=== PATIENT | female | born 1975 | race Caucasian/White ===

== ENCOUNTER 2023-09-20 12:20 | Outpatient (CLI) | payer BC, SELFPAY ==
--- NOTE | 2023-09-20 12:28 | ECHO_ITS ---
Patient Info Name: Lindsay Link Age: 48 years : 1975 Gender: Female Ht: 65 in Wt: 173 lbs BSA: 1.92 m2 HR: 78 bpm BP: 117 / 86 mmHg Heart Rhythm: Sinus Rhythm Technical Quality: Good Exam Date: 09/20/2023 12:35 PM Exam Location: Echo Lab Patient Status: Outpatient Admit Date: 09/20/2023 Staff Ordering Physician: Magaly Chapman Dining Room Tables Set Up Attendant: Adelina Chang RDCS Attending Provider: Magaly Chapman Referring Physician: Adela CRANE; Exam Type: CA echo doppler color flow Study Info Indications - Cher-Danlos syndrome Complete two-dimensional, color flow and Doppler transthoracic echocardiogram is performed. Summary 1. Complete two-dimensional, color flow and Doppler transthoracic echocardiogram is performed. 2. Left ventricular chamber dimension is normal. 3. Left ventricular systolic function is normal, estimated at 65-70%. 4. The left ventricular diastolic function is grade I diastolic dysfunction. 5. E/e' 5 is not elevated. 6. There is mild aortic valve sclerosis. 7. There is trace mitral valve regurgitation. 8. There is trace tricuspid valve regurgitation. 9. No pulmonary hypertension, estimated pulmonary arterial systolic pressure is 25 mmHg. Left Ventricle E/e' 5 is not elevated. Left ventricular chamber dimension is normal. Left ventricular systolic function is normal, estimated at 65-70%. The left ventricular diastolic function is grade I diastolic dysfunction. Right Ventricle Right ventricular systolic function is normal and with normal TAPSE 2.5 cm. Right ventricular chamber dimension is normal. Left Atria Left atrial chamber dimension is normal. Right Atria Right atrial chamber dimension is normal. Aortic Valve The aortic valve is trileaflet. There is mild aortic valve sclerosis. There is no aortic valve stenosis. There is no aortic valve regurgitation. Pulmonic Valve There is no pulmonic regurgitation. Mitral Valve There is no mitral valve stenosis. There is trace mitral valve regurgitation. Tricuspid Valve There is trace tricuspid valve regurgitation. No pulmonary hypertension, estimated pulmonary arterial systolic pressure is 25 mmHg. Pericardium/Pleural There is no pericardial effusion. Inferior Vena Cava Normal inferior vena cava with >50% collapse upon inspiration consistent with normal right atrial pressure, 5 mmHg. Aorta The aortic root size at the sinus of Valsalva is normal. Left Ventricular Outflow Tract Name Value Normal LVOT 2D LVOT Diameter 2.0 cm LVOT Doppler LVOT Peak Gradient 5 mmHg LVOT Mean Gradient 2 mmHg LVOT VTI 24 cm LVOT VTI/AV VTI Ratio 0.7 LVOT Stroke Volume 72 ml LVOT CO 4.1 l/min LVOT CI 2.1 l/min/m2 Pulmonic Valve Name Value Normal RVOT Doppler
== END 2023-09-20 12:21 | disposition home or self-care (01) ==
LOC: ANHCARD 12:22
PROVIDERS: PCP Internal Medicine; Visit Provider Clinical Nurse Specialist
DX: Q79.60 Ehlers-Danlos syndrome, unspecified (principal); I07.1 Rheumatic tricuspid insufficiency
CPT/HCPCS: 93306

== ENCOUNTER 2023-10-12 10:17 | Outpatient (CLI) | payer BC, SELFPAY ==
--- NOTE | ~2023-10-12 | XR_ITS ---
Left Hand Technique: PA and lateral views were obtained. Clinical History: Pain Findings: No acute fracture or dislocation is seen. Osseous alignment is anatomic. Joint spaces are p reserved. Soft tissues are unremarkable. Impression: Unremarkable left hand. Reviewed, dictated and finalized at location M. Impression: Unremarkable left hand.
== END 2023-10-12 10:18 ==
PROVIDERS: PCP Internal Medicine; Visit Provider Clinical Nurse Specialist
DX: M79.645 Pain in left finger(s) (principal)
CPT/HCPCS: 73120

== ENCOUNTER 2023-10-21 17:06 | Emergency (ER) | payer BC, SELFPAY ==
--- NOTE | ~2023-10-21 | XR_ITS ---
EXAMINATION: XR finger 3rd LT min 2V DATE: 10/21/2023 17:20 INDICATION: Persistent left third digit pain post reduction of a dislocation TECHNIQUE: Dorsal palmar, lateral and 2 oblique views of the left third digit were obtained COMPARISON: Left hand radiographs dated 10/12/2023 FINDINGS: Alignment is normal. No fracture. Joint spaces are normal. Periarticular soft soft tissue swelling ab out the third proximal interphalangeal joint. IMPRESSION: 1. No osseous abnormality. Reviewed, dictated and finalized at location A. IMPRESSION: 1. No osseous abnormality.
[2023-10-21 17:10] VITALS: BP 141/94; PULSE 74; RESP 16; TEMP 36.4; O2SAT 100
--- NOTE | 2023-10-21 17:22 | ED.GENADULT ---
HPI - General Adult General Chief complaint: Extremity Injury, Upper Stated complaint: finger injury Time Seen by Provider: 10/21/23 17:08 History of Present Illness HPI narrative: 48-year-old female history of her LEs down less presented to the emergency department for evaluation of an injury to her left middle finger. Patient states that she was running her fingers through her hair when she had a dislocation at the DIP of her left middle finger. Patient states she tried to reduce the dislocation and felt a pop and the tendon that finger and patient is unable to flex the distal phalanx the left middle finger. Related Data Home Medications Medication Instructions Recorded Confirmed omeprazole 40 mg capsule,delayed 40 mg PO DAILY 08/24/23 08/24/23 release Allergies Allergy/AdvReac Type Severity Reaction Status Date / Time Cephalosporins Allergy Severe Hives Verified 10/21/23 17:07 Penicillins Allergy Severe Anaphylactic Verified 10/21/23 17:07 Shock tetanus and diphtheria Allergy Severe Hives Verified 10/21/23 17:07 toxoids sulfite Allergy Anaphylactic Verified 10/21/23 17:07 Shock Review of Systems Review of Systems: All systems reviewed & are unremarkable except as noted in HPI and below [facility] Past Medical History Medical History (Updated 10/22/23 @ 00:00 by Mirna Padilla) Allergies Arthritis Cher-Danlos syndrome Mast cell activation syndrome POTS (postural orthostatic tachycardia syndrome) Raynauds syndrome Surgical History Surgical History (Updated 08/24/23 @ 08:59 by Ella Ace MA) History of orthopedic surgery Family History Family History (Updated 08/24/23 @ 08:35 by Ella Ace MA) Father Brain cancer Alcoholism in family member Hypertension Cerebrovascular accident Mother Asthma Hypertension Depression Anxiety Heart problem Sibling Diabetes mellitus Grandparent Diabetes mellitus Grandparent Alcoholism in family member Social History Social History (Updated 08/24/23 @ 08:32 by Ella Ace MA) Social History: Caffeine 4 shots of expresso Smoking status: Never smoker Second hand tobacco smoke exposure: No Alcohol intake: current Alcohol use details: Social drinker Substance use: never Substance use type: does not use Do You Feel Safe in your Home?: Yes Lack of Transportation: No Lack of Food: Never True Current Housing: I Have Housing Concerned About Future Housing: No Difficulty Paying Gas/Electric Bills: No Difficulty Paying for Meds: No Currently Unemployed: No Education: Master's Degree or Higher Difficulty w/ Childcare or Family Care: No Living arrangements: with family Occupation/Education: occupation Additional occupation/education comments: [employer] Gender identity (if verbalized by the patient): Female Sexual Orientation (if Verbalized by the Patient): Straight or Heterosexual Agree to blood products: Yes Exam Narrative: APPEARANCE: Well appearing, no pain, no distress, well-nourished. HEAD: normocephalic, atraumatic. EYES: PERRLA/EOMI, conjunctivae clear. NOSE: Normal no drainage NECK: Supple. No adenopathy, no masses. RESPIRATORY: Airway patent, respirations nonlabored. Clear to auscultation bilaterally, no rales, rhonchi, wheezing. CARDIOVASCULAR: Regular rate and rhythm without murmurs rubs or gallops. ABDOMINAL: Soft, nontender, nondistended, normal bowel sounds MUSCULOSKELETAL: Decreased range of motion and pain at the left middle finger NEURO: Alert. Cranial nerves II through XII intact. SKIN: Warm, dry. Normal Color Course Vital Signs Vital signs: Vital Signs Temperature 97.5 F L 10/21/23 17:10 Pulse Rate 74 10/21/23 17:10 Respiratory Rate 16 10/21/23 17:10 Blood Pressure 141/94 H 10/21/23 17:10 Pulse Oximetry 100 10/21/23 17:10 Temperature 97.5 F L 10/21/23 17:10 Pulse Rate 72 05/0
[2023-10-21 18:20] VITALS: BP 138/62; PULSE 72; RESP 18; O2SAT 99
== END 2023-10-21 18:21 | disposition home or self-care (01) ==
PROVIDERS: Emergency Provider Emergency Medicine
DX: S69.92XA Unspecified injury of left wrist, hand and finger(s), initial encounter (principal); M19.90 Unspecified osteoarthritis, unspecified site; Q79.60 Ehlers-Danlos syndrome, unspecified; G90.A Postural orthostatic tachycardia syndrome [POTS]; I73.00 Raynaud's syndrome without gangrene; D89.40 Mast cell activation, unspecified; X58.XXXA Exposure to other specified factors, initial encounter
CPT/HCPCS: 29130; 73140; 99283

== ENCOUNTER 2023-10-23 10:21 | Outpatient (CLI) | payer BC, SELFPAY ==
--- NOTE | ~2023-10-23 | MR_ITS ---
EXAMINATION: MR hand LT wo con DATE: 10/23/2023 11:00 INDICATION: Injury to the left middle finger TECHNIQUE: Magnetic resonance imaging (MRI) of the left hand was performed without intravenous contra st to include the metacarpals and digits and which excludes the proximal carpal row. Sequences includ ed sagittal, coronal, and axial T1-weighted FSE and T2-weighted FS FSE. COMPARISON: Radiographs dated 10/21/2023 FINDINGS: Bone alignment is normal. Normal marrow signal throughout with no fracture or pathologic marrow repla cing process. Joint spaces are normal. Visualized portions of the flexor and extensor tendons are nor mal. The collateral ligament complex at the metacarpophalangeal and interphalangeal joints are normal . The intrinsic musculature of the hand is normal. No joint effusions, tenosynovitis or other abnorma l fluid collections. IMPRESSION: 1. Normal left hand MRI. Reviewed, dictated and finalized at location A. IMPRESSION: 1. Normal left hand MRI.
== END 2023-10-23 10:22 ==
LOC: GOSHIMG 10:22
PROVIDERS: Visit Provider Plastic Surgery
DX: S60.943A Unspecified superficial injury of left middle finger, initial encounter (principal); X58.XXXA Exposure to other specified factors, initial encounter
CPT/HCPCS: 73218

== ENCOUNTER 2024-03-29 13:01 | Emergency (ER) | payer BC, SELFPAY ==
--- NOTE | ~2024-03-29 | US_ITS ---
EXAMINATION: US venous doppler LE RT DATE: 03/29/2024 13:40 INDICATION: Right calf pain. TECHNIQUE: Grayscale ultrasound images without and with compression and Doppler ultrasound images of the right lower extremity veins were obtained. COMPARISON: None. FINDINGS: The visualized portions of right common femoral vein, profunda (deep) femoral vein, femoral vein, pop liteal vein, peroneal veins, posterior tibial veins, and greater saphenous vein outflow are patent. IMPRESSION: 1. No deep venous thrombosis. Reviewed, dictated and finalized at location A.
[2024-03-29 13:10] VITALS: BP 111/79; PULSE 93; RESP 20; TEMP 36.5; O2SAT 100
--- NOTE | 2024-03-29 14:22 | ED.EXTPRO ---
HPI - Extremity Problem General Chief complaint: Extremity Problem,Nontraumatic Stated complaint: Right Calf Pain Time Seen by Provider: 03/29/24 14:04 History of Present Illness HPI Narrative: Patient has history of Cher Danlos, woke up today with the bad muscle ache to her right lower leg, worse with movement of her foot. Denies any recent trauma. Worried about blood clot Related Data Allergies Allergy/AdvReac Type Severity Reaction Status Date / Time Cephalosporins Allergy Severe Hives Verified 03/21/24 08:18 Penicillins Allergy Severe Anaphylactic Verified 03/21/24 08:18 Shock tetanus and diphtheria Allergy Severe Hives Verified 03/21/24 08:18 toxoids sulfite Allergy Anaphylactic Verified 03/21/24 08:18 Shock Review of Systems Review of Systems: All systems reviewed & are unremarkable except as noted in HPI and below [facility] Past Medical History Medical History (Updated 03/29/24 @ 14:08 by Gisele Dugan MD) Allergies Arthritis Cher-Danlos syndrome Mast cell activation syndrome Overweight with body mass index (BMI) of 29 to 29.9 in adult POTS (postural orthostatic tachycardia syndrome) Raynauds syndrome Surgical History Surgical History History of orthopedic surgery Family History Family History Father Brain cancer Alcoholism in family member Hypertension Cerebrovascular accident Mother Asthma Hypertension Depression Anxiety Heart problem Sibling Diabetes mellitus Grandparent Diabetes mellitus Grandparent Alcoholism in family member Social History Social History Social History: Caffeine 4 shots of expresso Smoking status: Never smoker Second hand tobacco smoke exposure: No Alcohol intake: current Alcohol use details: Social drinker Substance use: never Substance use type: does not use Do You Feel Safe in your Home?: Yes Lack of Transportation: No Lack of Food: Never True Current Housing: I Have Housing Concerned About Future Housing: No Difficulty Paying Gas/Electric Bills: No Difficulty Paying for Meds: No Currently Unemployed: No Education: Master's Degree or Higher Difficulty w/ Childcare or Family Care: No Living arrangements: with family Occupation/Education: occupation Additional occupation/education comments: [employer] Gender identity (if verbalized by the patient): Female Sexual Orientation (if Verbalized by the Patient): Straight or Heterosexual Agree to blood products: Yes Exam Narrative: EXAMINATION OF ORGAN SYSTEMS/BODY AREAS: Constitutional: Vital signs per nursing GENERAL:[No acute distress, non-toxic appearing.] HEAD: Normal with no signs of head trauma. EYES: EOMI, conjunctiva normal ENT: Hearing grossly intact LUNGS: Nonlabored breathing. HEART: [Regular rate and rhythm], right leg well perfused, normal DP pulse ABD: [Soft], [nontender to palpation] EXT: Normal range of motion, some tenderness to palpation to the posterior right lower leg without obvious swelling SKIN: [No rashes or lesions.] NEURO: [Alert and oriented x 3. No gross focal sensory or strength deficits.] ambulating with antalgic gait PSYCH: Normal affect Course Vital Signs Vital signs: Vital Signs Temperature 97.7 F 03/29/24 13:10 Pulse Rate 93 03/29/24 13:10 Respiratory Rate 20 03/29/24 13:10 Blood Pressure 111/79 03/29/24 13:10 Pulse Oximetry 100 03/29/24 13:10 Oxygen Delivery Room Air 03/29/24 13:10 Temperature 97.7 F 03/29/24 13:10 Pulse Rate 93 03/29/24 13:10 Respiratory Rate 20 03/29/24 13:10 Blood Pressure 111/79 03/29/24 13:10 Pulse Oximetry 100 03/29/24 13:10 Oxygen Delivery Room Air 03/29/24 13:10 MDM - Extremity (Nontraumatic) MDM Narrative Medical decision making narrative: patient presents with atraumatic right lower leg pain, concerned about DVT, scan obtained thankfully negative for blood Clot. Patient reassured, I will trial course of muscle relaxants, recommended follow-up with PCP with return precautions, Discharge Plan Discharge Clinical Impression: Muscle spasm Patient Disposition: Home, Self-Care Condition: Stable Instructions: Antibiotic Form, Leg Pain (ED) Additional Instructions: Please follow up with your doctor; you can always return for any further issues. Prescriptions: New methocarbamol 750 mg tablet 750 mg PO TID PRN (Reason: muscle spasm) Qty: 30 0RF No Action rosuvastatin 10 mg tablet 10 mg PO DAILY Qty: 90 0RF epinephrine 0.3 mg/0.3 mL auto-injector 0.3 ml IM ONCE Qty: 2 2RF Rx Instructions: as a single dose ondansetron HCl 4 mg tablet 4 mg PO DAILY PRN (Reason: nausea and vomiting) Qty: 20 2RF omeprazole 40 mg capsule,delayed release(DR/EC) 40 mg PO DAILY Qty: 90 1RF Wegovy 1.7 mg/0.75 mL pen injector 1.7 mg subcut WEEKLY Qty: 3 0RF Rx Instructions: administer weeks 13 through 16 of therapy trazodone 150 mg tablet 150 mg PO QHS PRN (Reason: insomnia) Qty: 90 3RF Follow-up/Referrals: PHYSICIAN,GROUT MACHINE TENDER [Non-Staff] -
== END 2024-03-29 14:14 | disposition home or self-care (01) ==
LOC: ANHED 14:11
PROVIDERS: Emergency Provider Emergency Medicine; PCP Clinical Nurse Specialist
DX: M62.831 Muscle spasm of calf (principal); Q79.60 Ehlers-Danlos syndrome, unspecified; D89.40 Mast cell activation, unspecified; G90.A Postural orthostatic tachycardia syndrome [POTS]; I73.00 Raynaud's syndrome without gangrene; M19.90 Unspecified osteoarthritis, unspecified site
CPT/HCPCS: 93971; 99284

== ENCOUNTER 2024-05-31 06:45 | Emergency (ER) | payer BC, SELFPAY ==
[2024-05-31] VITALS (14 sets, daily range): BP systolic 102–118; BP diastolic 66–71; PULSE 74; RESP 18; O2SAT 100
--- NOTE | ~2024-05-31 | XR_ITS ---
EXAMINATION: XR chest 2V DATE: 05/31/2024 07:26 INDICATION: Shortness of breath, cough and difficulty catching breath. TECHNIQUE: PA and lateral views of the chest were obtained. COMPARISON: None FINDINGS: The lungs are clear with no focal airspace opacities, pulmonary edema, pleural effusion or pneumothor ax. The cardiomediastinal silhouette is normal. Moderate thoracic spondylosis. IMPRESSION: 1. No acute cardiopulmonary disease. Reviewed, dictated and finalized at location A. FACTURER REPRESENTATIVE
[2024-05-31 07:25] LABS: Basophils Absolute Auto 0.1 K/mm3 (0.0-0.1); Basophils Percent Auto 0.5 % (0.2-1.2); Eosinophils Absolute Auto 0.1 K/mm3 (0-0.3); Eosinophils Percent Auto 1.1 % (0-4.4); Hemoglobin 14.6 g/dL (12.0-15.0); Immature Granulocyte Absolute 0.05 K/mm3 (0.00-0.031); Immature Granulocyte Percent A 0.5 % (0-0.5); Lymphocytes Absolute Auto 2.27 K/mm3 (0.9-3.2); Lymphocytes Percent Auto 23.2 % (18.3-44.2); Mean Corpuscular HGB Conc 33.2 g/dl (32-36); Mean Corpuscular Hemoglobin 31.3 pg (26-34); Mean Corpuscular Volume 94.2 fl (80-100); Mean Platelet Volume 8.8 fl (7.4-10.4); Monocytes Absolute Auto 0.8 K/mm3 (0.1-0.6); Monocytes Percent Auto 8.6 % (2.6-8.5); Neutrophils Absolute Auto 6.5 K/mm3 (1.3-6.7); Neutrophils Percent Auto 66.1 % (45.5-73.1); Platelet Count Result 295 k/mm3 (150-375); Red Blood Count 4.67 M/mm3 (4.2-5.4); Red Cell Distribution Width 12.6 % (11.5-14.5); White Blood Count 9.8 K/mm3 (4.5-10.0)
[2024-05-31] MEDS: SODIUM CHLORIDE 0.9% IV 1,000 ML 999 ML IV CONT (07:31)
[2024-05-31] MEDS: KETOROLAC 15 MG/ML VIAL (*BKC) IV PUSH (07:32)
[2024-05-31 07:40] LABS: Alanine Aminotransferase 15 U/L (6-35); Albumin Level 3.9 g/dL (3.5-5.1); Alkaline Phosphatase 46 U/L (38-126); Anion Gap 2 mmol/L (4-12); Aspartate Amino Transferase 17 U/L (14-36); Bilirubin,Total 0.6 mg/dL (0.2-1.3); Blood Urea Nitrogen 18 mg/dL (7-17); Calcium 9.3 mg/dL (8.4-10.2); Carbon Dioxide 31 mmol/L (22-30); Chloride 105 mmol/L (98-107); Estimated Glomerular Filt Rate > 60; Glucose 93 mg/dL (65-110); Magnesium 2.2 mg/dL (1.6-2.3); Sodium 138 mmol/L (137-145)
[2024-05-31 07:50] LABS: Strep Group A RT-PCR NOT DETECTED (Negative)
[2024-05-31 08:02] LABS: Influenza A QL RT-PCR Negative (Negative); Influenza B QL RT-PCR Negative (Negative); RSV RNA, RT-PCR Positive (Negative); SARS-CoV-2 RNA PCR Negative (Negative)
[2024-05-31 08:07] LABS: Procalcitonin < 0.0 ng/mL
--- NOTE | 2024-05-31 08:27 | ED_ITS ---
HPI - General Adult General Chief complaint: Upper Respiratory Infection Stated complaint: flu-like/cold symptoms Time Seen by Provider: 05/31/24 07:01 History of Present Illness HPI narrative: patient is a 49-year-old female presents emergency department with chief complaint of upper respiratory symptoms. Patient reports that she has not been feeling well for the last several days reports that she traveled to [place] and then back reports that she saw a tele health provider while she was in [place] started on antibiotics and reports that she has no smell a sore throat and feels somewhat short of breath at times patient states she also has headache with this the patient denies nuchal rigidity the patient does report that her mother had RSV Related Data Allergies Allergy/AdvReac Type Severity Reaction Status Date / Time Cephalosporins Allergy Severe Hives Verified 05/31/24 06:47 Penicillins Allergy Severe Anaphylactic Verified 05/31/24 06:47 Shock tetanus and diphtheria Allergy Severe Hives Verified 05/31/24 06:47 toxoids erythromycin base Allergy Mild Hives Verified 05/31/24 06:47 sulfite Allergy Anaphylactic Verified 05/31/24 06:47 Shock Review of Systems 2 Review of Systems: A 10 system review of systems was completed on the patient and is negative except for what is stated in the HPI. Nursing and ancillary documentation was reviewed. [facility] Past Medical History Medical History (Updated 05/31/24 @ 09:45 by Rosalio Castro MD) Overweight with body mass index (BMI) of 29 to 29.9 in adult Raynauds syndrome POTS (postural orthostatic tachycardia syndrome) Mast cell activation syndrome Cher-Danlos syndrome Arthritis Allergies Surgical History Surgical History History of orthopedic surgery Family History Family History Father Brain cancer Alcoholism in family member Hypertension Cerebrovascular accident Mother Asthma Hypertension Depression Anxiety Heart problem Sibling Diabetes mellitus Grandparent Diabetes mellitus Grandparent Alcoholism in family member Social History Social History Social History: Caffeine 4 shots of expresso Smoking status: Never smoker Second hand tobacco smoke exposure: No Alcohol intake: current Alcohol use details: Social drinker Substance use: never Substance use type: does not use Do You Feel Safe in your Home?: Yes Lack of Transportation: No Lack of Food: Never True Current Housing: I Have Housing Concerned About Future Housing: No Difficulty Paying Gas/Electric Bills: No Difficulty Paying for Meds: No Currently Unemployed: No Education: Master's Degree or Higher Difficulty w/ Childcare or Family Care: No Living arrangements: with family Occupation/Education: occupation Additional occupation/education comments: [employer] Gender identity (if verbalized by the patient): Female Sexual Orientation (if Verbalized by the Patient): Straight or Heterosexual Agree to blood products: Yes Exam 2 Narrative: GENERAL: Well-appearing, well-nourished, and in no acute distress. HEAD: Normocephalic, atraumatic. EYES: PERRLA and EOMI. ENT: Nares clear, no rhinorrhea or epistaxis. Mucous membranes moist. NECK: Supple. CHEST: Clear to auscultation. No respiratory distress. HEART: Regular rate and rhythm. No murmur heard. Normal peripheral pulses. ABDOMEN: Soft, nontender, nondistended, normal active bowel sounds. EXTREMITIES: Normal range of motion. No edema. SKIN: Warm, dry, no rash. NEURO: No focal deficits. Alert and oriented x3. PSYCH: Normal mood and affect. Course Vital Signs Vital signs: Vital Signs Pulse Oximetry 100 05/31/24 07:34 Pulse Rate 74 05/31/24 08:23 Respiratory Rate 18 05/31/24 08:23 Blood Pressure 102/66 05/31/24 09:31 Pulse Oximetry 100 05/31/24 09:31 Medical Decision Making [facility] Narrative Medical decision making narrative: differential diagnosis includes pneumonia, viral upper respiratory infection, strep pharyngitis, otitis media laboratory studies were obtained on the patient showed normal CBC CMP showed no acute abnormalities COVID flu and RSV showed a positive RSV strep was negative the patient was given IV fluids Toradol and a [place] in the emergency department Vital Signs Vital Signs: Vital Signs Pulse Oximetry 100 05/31/24 07:34 Pulse Rate 74 05/31/24 08:23 Respiratory Rate 18 05/31/24 08:23 Blood Pressure 102/66 05/31/24 09:31 Pulse Oximetry 100 05/31/24 09:31 Lab Data 05/31/24 07:19 05/31/24 07:19 Labs: Lab Results 05/31/24 Range/Units 07:19 WBC 9.8 (4.5-10.0) K/mm3 RBC 4.67 (4.2-5.4) M/mm3 Hgb 14.6 (12.0-15.0) g/dL Hct 44.0 (37.0-47.0) % MCV 94.2 (80-100) fl MCH 31.3 (26-34) pg MCHC 33.2 (32-36) g/dl RDW 12.6 (11.5-14.5) % Plt Count 295 (150-375) k/mm3 MPV 8.8 (7.4-10.4) fl Immature Gran % (Auto) 0.5 (0-0.5) % Neut % (Auto) 66.1 (45.5-73.1) % Lymph % (Auto) 23.2 (18.3-44.2) % Martin % (Auto) 8.6 H (2.6-8.5) % Eos % (Auto) 1.1 (0-4.4) % Baso % (Auto) 0.5 (0.2-1.2) % Lymph # (Auto) 2.27 (0.9-3.2) K/mm3 Martin # (Auto) 0.8 H (0.1-0.6) K/mm3 Eos # (Auto) 0.1 (0-0.3) K/mm3 Baso # (Auto) 0.1 (0.0-0.1) K/mm3 Abs Immat Gran (auto) 0.05 H (0.00-0.031) K/mm3 Absolute Neuts (auto) 6.5 (1.3-6.7) K/mm3 Absolute Nucleated RBC 0.000 (0.0-0.012) K/mm3 Nucleated RBC % 0.0 (0.0-0.2) % Sodium 138 (137-145) mmol/L Potassium 4.0 (3.4-5.0) mmol/L Chloride 105 (98-107) mmol/L Carbon Dioxide 31 H (22-30) mmol/L Anion Gap 2 L (4-12) mmol/L BUN 18 H (7-17) mg/dL Creatinine 0.70 (0.7-1.0) mg/dL Estim Creat Clear Calc Not Reportable Estimated GFR > 60 (59 - ) Glucose 93 (65-110) mg/dL Calcium 9.3 (8.4-10.2) mg/dL Magnesium 2.2 (1.6-2.3) mg/dL Total Bilirubin 0.6 (0.2-1.3) mg/dL AST 17 (14-36) U/L ALT 15 (6-35) U/L Alkaline Phosphatase 46 (38-126) U/L Total Protein 7.0 (6.3-8.2) g/dL Albumin 3.9 (3.5-5.1) g/dL Procalcitonin < 0.0 ng/mL Influenza A (RT-PCR) Negative (Negative) Influenza B (RT-PCR) Negative (Negative) RSV (RT-PCR) Positive A (Negative) SARS-CoV-2 RNA (RT-PCR) Negative (Negative) Group A Strep (PCR) Not detected (Negative) Discharge Plan Discharge Clinical Impression: Respiratory syncytial virus (RSV), Acute upper respiratory infection Patient Disposition: Home, Self-Care Condition: Stable Instructions: Antibiotic Form, Upper Respiratory Infection (ED), Viral Syndrome (ED), RSV (Respiratory Syncytial Virus) Infection (ED) Patient Language: Turkish Prescriptions: No Action methocarbamol 750 mg tablet 750 mg PO TID PRN (Reason: muscle spasm) Qty: 30 0RF epinephrine 0.3 mg/0.3 mL auto-injector 0.3 ml IM ONCE Qty: 2 2RF Rx Instructions: as a single dose ondansetron HCl 4 mg tablet 4 mg PO DAILY PRN (Reason: nausea and vomiting) Qty: 20 2RF omeprazole 40 mg capsule,delayed release(DR/EC) 40 mg PO DAILY Qty: 90 1RF trazodone 150 mg tablet 150 mg PO QHS PRN (Reason: insomnia) Qty: 90 3RF rosuvastatin 10 mg tablet 10 mg PO DAILY Qty: 90 0RF Wegovy 1.7 mg/0.75 mL pen injector 1.7 mg subcut WEEKLY Qty: 3 2RF Rx Instructions: administer weeks 13 through 16 of therapy Follow-up/Referrals: Magaly Chapman, HEALTH AND PHYSICAL EDUCATION PROFESSOR-C [Primary Care Provider] - Stand Alone Forms: Work/School Release IP Time of Disposition: 09:45
[2024-05-31] MEDS: HYDROcodone/acetaminophen (*CRX) 5-325 MG TABLET 1 TAB PO (08:37)
--- OUTSIDE RECORDS SUMMARY | 2024-06-03 20:23 | XMS_ITS | Encounter Summary ---
Author Organization [facility] Address [address] [place] [address] Care Team Providers Care Bistro Attendant Name Role Phone Unavailable Primary Care Provider Unavailabl e Prior Encounters Date Type Department Care Team Description 01/31/2021 Travel 01/31/2021 9:00 AM MDT Office Visit [facility] [address], [facility] [address] [place] [phone] Linda Schmitz, DDS 12/30/2020 Travel 12/30/2020 1:45 PM MDT Office Visit [facility] [address], [place] [address] [place] [phone] Linda Schmitz, DDS 12/29/2020 Orders Only [facility] [address], [place] [address] [place] [phone] Linda Schmitz, DDS 12/29/2020 Orders Only [facility] [address], [place] [address] [place] [phone] Linda Schmitz, DDS 07/07/2019 Converted 13x Documents [facility] [address], [place] [phone] <No scans attached> 07/07/2019 Converted CPS Chart Documents [facility] [address], [place] [address] [place] [phone] <No scans attached> 07/07/2019 Converted 13x Documents [facility] [address], [place] [phone] <No scans attached> 07/07/2019 Converted 13x Documents [facility] [address], [place] [address] [place] [phone] <No scans attached> Last Filed Vital Signs Vital Sign Reading Time Taken Comments Blood Pressure 103/79 01/31/2021 9:05 AM MDT Pulse 81 01/31/2021 9:05 AM MDT Temperature - - Respiratory Rate - - Oxygen Saturation - - Inhaled Oxygen Concentration - - Weight - - Height - - Body Mass Index - - Plan of Treatment Not on file Procedures Procedure Name Priority Date/Time Associated Diagnosis Comments LIMITED ORAL EVALUATION - PROBLEM FOCUSED Routine 01/31/2021 9:00 AM MDT SALES TAX Routine 12/30/2020 1:45 PM MDT NC X-RAY Routine 12/30/2020 1:45 PM MDT 3 CORE BUILDUP, INCLUDING ANY PINS WHEN REQUIRED Routine 12/30/2020 1:45 PM MDT 3 CERECFIRED CROWNPOST Routine 1:45 PM MDT CANCELLED APPOINTMENT Routine 06/30/2020 1:00 AM MST PERIODIC ORAL EVALUATION - ESTABLISHED PATIENT Routine 03/23/2020 1:00 AM MDT ORAL HYGIENE INSTRUCTIONS Routine 2019 1:00 AM MDT TOPICAL APPLICATION OF FLUORIDE VARNISH Routine 03/23/2020 1:00 AM MDT PROPHYLAXIS - ADULT Routine 03/23/2020 1 :00 AM MDT BITEWINGS - FOUR RADIOGRAPHIC IMAGES Routine 03/23/2020 1:00 AM MDT PERIODIC ORAL EVALUATION - ESTABLISHED PATIENT Routine 05/24/2019 1:00 AM MST ORAL HYGIENE INSTRUCTIONS Routine 2018 1:00 AM MST TOPICAL APPLICATION OF FLUORIDE VARNISH Routine 05/24/2019 1:00 AM MST PROPHYLAXIS - ADULT Routine 05/24/2019 1 :00 AM MST 30 CROWN PORC POST Routine 11/08/2018 1: 00 AM MDT 31 MO AMALGAM 2 SURFACE Routine 11/09/19 19 1:00 AM MDT 28 DO AMALGAM 2 SURFACE Routine 11/09/19 19 1:00 AM MDT 12 DO AMALGAM 2 SURFACE Routine 11/09/19 19 1:00 AM MDT 5 DO AMALGAM 2 SURFACE Routine 9 1:00 AM MDT 3 MO AMALGAM 2 SURFACE Routine 9 1:00 AM MDT 19 [facility] M[facility] CROWN POST Routine 11/08/2018 1:00 AM MDT 18 [facility] MADE CROWN POST Routine 11/08/2018 1:00 AM MDT 2 [facility] MADE CROWN POST Routine 11/08/2018 1:00 AM MDT 21 ENDODONTIC THERAPY, PREMOLAR TOOTH (EXCLUDING FINAL CHRISTIAN) Routine 11/08/2018 1:00 AM MDT 14 MODL CEREC ONLAY 4 SURF Routine 11/08/2018 1:00 AM MDT 21 CROWN PFM POST Routine 11/08/2018 1:0 0 AM MDT ORAL HYGIENE INSTRUCTIONS Routine 2018 1:00 AM MDT TOPICAL APPLICATION OF FLUORIDE VARNISH Routine 11/08/2018 1:00 AM MDT PROPHYLAXIS - ADULT Routine 11/08/2018 1 :00 AM MDT COMPREHENSIVE ORAL EVALUATION - NEW OR ESTABLISHED PATIENT Routine 11/08/2018 1:00 AM MDT PANORAMIC RADIOGRAPHIC IMAGE Routine 11/08/2018 1:00 AM MDT INTRAORAL - COMPREHENSIVE SERIES OF RADIOGRAPHIC IMAGES Routine 11/08/2018 1:00 AM MDT INTRAORAL PHOTO Routine 11/08/2018 1:00 AM MDT INTRAORAL PHOTO Routine 11/08/2018 1:00 AM MDT INTRAORAL PHOTO Routine 11/08/2018 1:00 AM MDT INTRAORAL PHOTO Routine 11/08/2018 1:00 AM MDT INTRAORAL PHOTO Routine 11/08/2018 1:00 AM MDT INTRAORAL PHOTO Routine 11/08/2018 1:00 AM MDT INTRAORAL PHOTO Routine 11/08/2018 1:00 AM MDT INTRAORAL PHOTO Routine 11/08/2018 1:00 AM MDT INTRAORAL PHOTO Routine 11/08/2018 1:00 AM MDT INTRAORAL PHOTO Routine 11/08/2018 1:00 AM MDT 15 MOL COMPOSITE FILLING Routine 019 1:00 AM MDT 3 MOD COMPOSITE FILLING Routine 11/09/19 19 1:00 AM MDT Visit Diagnoses Not on file Insurance Fourandhalf PPO Fourandhalf PPO
--- OUTSIDE RECORDS SUMMARY | 2024-06-03 20:23 | XMS_ITS | Encounter Summary ---
Author Organization [facility] Address [address] [place] [address] Care Team Providers Care Progressive Care Unit Registered Nurse Name Role Phone Unavailable Primary Care Provider Unavailabl e Encounter Details Date Type Department Care Team (Late st Contact Info) Description 12/29/2020 Orders Only [facility] [address], [place] [address] [place] [phone] Linda Schmitz, DDS [address] [place] [address] Social History Tobacco Use Types Packs/Day Years Used Date Smoking Tobacco: Never Assessed Comments Unknown Sex and Gender Information Value Date Recorded Sex Assigned at Not on file Legal Sex Female 11:10 AM PST Gender Identity Not on file Sexual Orientation Not on file documented as of this encounter Plan of Treatment Not on file documented as of this encounter Visit Diagnoses Not on filedocumented in this encounter
--- OUTSIDE RECORDS SUMMARY | 2024-06-03 20:23 | XMS_ITS | Encounter Summary ---
Author Organization [facility] Address [address] [place] [address] Care Team Providers Care Black Top Roller Name Role Phone Unavailable Primary Care Provider Unavailabl e Encounter Details Date Type Department Care Team (Late st Contact Info) Description 07/07/2019 Converted 13x Documents [facility] [address], [place] [phone] Social History Tobacco Use Types Packs/Day Years Used Date Smoking Tobacco: Never Assessed Comments Unknown Sex and Gender Information Value Date Recorded Sex Assigned at Not on file Legal Sex Female 11:10 AM PST Gender Identity Not on file Sexual Orientation Not on file COVID-19 Exposure Response Date Recorded In the last month, have you been in contact with someone who was confirmed or suspected to have Coronavirus / COVID-19? No / Unsure 01/31/2021 9:00 AM PDT documented as of this encounter Plan of Treatment Not on file documented as of this encounter Visit Diagnoses Not on filedocumented in this encounter
--- OUTSIDE RECORDS SUMMARY | 2024-06-03 20:23 | XMS_ITS | Encounter Summary ---
Author Organization [facility] Address [address] [place] [address] Care Team Providers Care Locomotive Observer Name Role Phone Unavailable Primary Care Provider Unavailabl e Encounter Details Date Type Department Care Team (Late st Contact Info) Description 12/29/2020 Orders Only [facility] [address], [place] [address] [place] [phone] Linda Schmitz, DDS [address] [place] [address] Social History Tobacco Use Types Packs/Day Years [...] have Coronavirus / COVID-19? No / Unsure 12/30/2020 1:27 PM PDT documented as of this encounter Plan of Treatment Not on file documented as of this encounter Visit Diagnoses Not on filedocumented in this encounter
--- OUTSIDE RECORDS SUMMARY | 2024-06-03 20:23 | XMS_ITS | Encounter Summary ---
Author Organization [facility] Address [address] [place] [address] Care Team Providers Care Form Setter Steel Pan Forms Name Role Phone Unavailable Primary Care Provider Unavailabl e Encounter Details Date Type Department Care Team (Late st Contact Info) Description 01/31/2021 9:00 AM MDT Office Visit [facility] [address], [facility] [address] [place] [phone] Linda Schmitz DDS [address] [place] [address] Social History Tobacco Use Types Packs/Day Years Used Date Smoking Tobacco: Never Alcohol Use Standard Drinks/Week Comments Never 0 (1 standard drink = 0.6 oz pur e alcohol) Comments Unknown Sex and Gender Information Value [...] AM PDT documented as of this encounter Last Filed Vital Signs Vital Sign Reading Time Taken Comments Blood Pressure 103/79 01/31/2021 9:05 AM MDT Pulse 81 01/31/2021 9:05 AM MDT Temperature - - Respiratory Rate - - Oxygen Saturation - - Inhaled Oxygen Concentration - - Weight - - Height - - Body Mass Index - - documented in this encounter Miscellaneous Notes * Dental Procedure Details - Linda Schmitz DDS - 01/31/2021 9:00 AM MDT Pt presents with the high occlusion on crown #3. Checked occlusion on seated position, heavy spot noted in central groove, adjusted and polished. Pt happy with the adjustment and left with [facility]. NV: 6M CCX/PROPHY/VARN documented in this encounter Plan of Treatment Not on file documented as of this encounter Procedures Procedure Name Priority Date/Time Associated Diagnosis Comments LIMITED ORAL EVALUATION - PROBLEM FOCUSED Routine 01/31/2021 9:00 AM MDT documented in this encounter Visit Diagnoses Not on filedocumented in this encounter
--- OUTSIDE RECORDS SUMMARY | 2024-06-03 20:23 | XMS_ITS | Encounter Summary ---
Author Organization [facility] Address [address] [place] [address] Care Team Providers Care Refinisher Name Role Phone Unavailable Primary Care Provider Unavailabl e Encounter Details Date Type Department Care Team (Latest Contact Info) Description 12/30/2020 Travel Social History Tobacco Use Types Packs/Day Years [...]
--- OUTSIDE RECORDS SUMMARY | 2024-06-03 20:23 | XMS_ITS | CCD ---
Author Organization [facility] Address [address] [facility] [place] [address] Care Team Providers Care Assistant Director Of Security Name Role Phone Unavailable Primary Care Provider Unavailabl e Allergies Active Allergy Reactions Criticality Noted Date Comments Cephalosporins 05/24/2018 Doxycycline Hives High 04/15/2020 Erythromycin 04/05/2018 Penicillamine 06/02/2020 Other reaction(s): Unknown Penicillins 04/05/2018 Sulfa (Sulfonamide Antibiotics) High 04/05/2018 Sulfites 10/07/2018 Tetanus Vaccines And Toxoid 10/27/19 Medications triazolam (HALCION) 0.25 mg tablet Take 1 tablet 1 hour prior to appointment and bring 2nd tablet to appointment. 2 tablet 1 Active EPINEPHrine (EPIPEN) 0.3 mg/0.3 mL injection syringe 1 Active cetirizine (ZyrTEC) 10 mg tablet Take 10 mg by mouth. Active clobetasoL (TEMOVATE) 0.05 % cream Apply topically. 1 Active clobetasoL (TEMOVATE) 0.05 % external solution Apply 1 application topically. 1 Active clobetasoL-calc ipotriene 0.05-0.005 % solution 1 Active omeprazole (PriLOSEC) [address] capsule TAKE 1 CAPSULE BY MOUTH 1 TIME EACH DAY. 1 Active traZODone (DESYREL) 50 mg tablet Take 150 mg by mouth. 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 Patient agrees to repeat corticosteroid injection therapy for her left elbow. Patient with a history of left elbow dislocation which she intermittently encounters pain between lateral epicondyle and olecranon region-between joint space of radial head and distal humerus. Patient may resume activity as tolerated following injection therapy. Patient is to follow-up in an as-needed basis. Discussed available diagnostic imaging associated with diagnosis including discussion on diagnosis, prognosis, available treatment options and expected outcomes. Note: the listed diagnosis is based on review of available diagnostic modalities, gathering health history pertinent to presenting reason, and examination findings from today? s exam. If there is any change in your presenting symptom--please call and/or report to the clinic for a follow up evaluation and changes to your treatment plan will be adjusted for a goal of optimal outcomes. Pending past medical history. Patient may take over the counter NSAIDs per label instructions as dose will vary. Note: if you have any medical conditions that are contraindicated for NSAIDs use--please avoid or restrict NSAID use. Patient may use/continue conservative modalities such as rest, ice/cold packs, compression and elevation as needed for symptom relief. Pain of left calf 03/07/2019 Overview (12/30/2020): Last Assessment & Plan: Patient with acute left calf muscle pain. Patient cannot recall identified injury and does report long distance traveling. Plan is to pursue ultrasound of left lower leg to rule out DVT and rule out gastrocnemius muscle tear. Patient advised to refrain from activity that causes additional pain. Patient may resume activity as tolerated. Patient to continue with conservative modalities as needed. Patient may take [id number] NSAIDs as needed. Patient may use calf compression sleeve if needed. Will await ultrasound results to determine additional treatment as applicable. Discussed available diagnostic imaging associated with diagnosis including discussion on diagnosis, prognosis, available treatment options and expected outcomes. Note: the listed diagnosis is based on review of available diagnostic modalities, gathering health history pertinent to presenting reason, and examination findings from today? s exam. If there is any change in your presenting symptom--please call and/or report to the clinic for a follow up evaluation and changes to your treatment plan will be adjusted for a goal of optimal outcomes. Pending past medical history. Patient may take over the counter NSAIDs per label instructions as dose will vary. Note: if you have any medical conditions that are contraindicated for NSAIDs use--please avoid or restrict NSAID use. Patient may use/continue conservative modalities such as rest, ice/cold packs, compression and elevation as needed for symptom relief. Instability of left elbow joint 12/17/2018 Overview (12/30/2020): Last Assessment & Plan: 1.) I explained to the patient that it is highly likely that she has instability of her elbow and ongoing cortisone injections are not the best treatment for instability. These potentially could actually increase the damage to her elbow. I recommend a strengthening program and occupational therapy on the left elbow and both upper extremities. I emphasized the need for strengthening program since her ligaments are loose and the muscles have to compensate. I also recommend an MRI of the left elbow at this point to ensure there is no ligamentous tear or damage and also this will evaluate for bony stress reactions or damage. She should follow-up with me after the MRI has been completed. 2.) Patient can use local measures such as ice, heat, anti-inflammatories, stretching and strengthening exercises. 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 When the joints are hypermobile, the muscles have to compensate and I recommend a regular strengthening program of the upper and lower extremities. An occupational therapy referral was provided for her left elbow and generalized upper extremity exercises. Immunizations Immunization Administration Dates Next Due COVID-19, mRNA, LNP-S, PF, 3 0 mcg/0.3 mL dose 07/28/2020,07/06/2020 Influenza, split virus, trivalent, PF ,03/19/2019,06/13/2018,2017 Influenza, unspecified 03/19/2019 Social History Tobacco Use Types Packs/Day Years Used Date Smoking Tobacco: Never Alcohol Use Standard Drinks/Week Never 0 (1 standard drink = 0.6 oz pure alcohol) Comments Unknown Sex and Gender Information Value Date Recorded Sex Assigned at Not on file Legal Sex Female 11:10 AM PST Gender Identity Not on file Sexual Orientation Not on file Last Filed Vital Signs Vital Sign Reading [...] Procedure Name Priority Date/Time Associated Diagnosis Comments PROPHYLAXIS - ADULT Routine 03/23/2020 1:00 AM MDT from Last 3 Months or Most Recently Relevant to Health Maintenance
--- OUTSIDE RECORDS SUMMARY | 2024-06-03 20:23 | XMS_ITS | Encounter Summary ---
Author Organization [facility] Address [address] [place] [address] Care Team Providers Care Director Electronics Name Role Phone Unavailable Primary Care Provider Unavailabl e Encounter Details Date Type Department Care Team (Late st Contact Info) Description 07/07/2019 Converted 13x Documents [facility] [address], [place] [address] [place] [address] Social History Tobacco Use Types Packs/Day Years [...]
--- OUTSIDE RECORDS SUMMARY | 2024-06-03 20:23 | XMS_ITS | Patient Health Record ---
Author Organization [facility] Address [address] [place] [facility] [place] [address] Care Team Providers Care Charge Gang Weigher Name Role Phone Raghu Dee MD Primary Care Provider Chet Bender [phone] Allergies Allergen (clinical drug ingredient) Drug/Non Drug Allergy documented on EMR Reaction Allergy Type Onset Date Status erythromycin Erythromycin Unknown Drug Allergy A ctive penicillamine Penicillamine Unknown Drug Allergy Active Sulfamethoxazole Unknown Drug Allergy Active Medicinal cephalosporin and acting as antibacterial agent (FN) Cephalosporins Unknown Drug Allergy Active Sulfite and/or sulfite derivative (FN) Sulfites Unknown Drug Allergy Active Reason For Referral No Information Medications Medication SIG (Take, Route, Fr equency, Duration) Notes Start Date End Date Status NasalCrom 5.2 MG/ACT 1 spray in each nos tril Nasally Three times a day for 30 day(s) 05/19/2020 Active PredniSONE 20 mg 3 tabs daily for 3 d ays, then 2 tabs daily for 3 days, then 1 tab daily for 3 days Orally once a day for 9 days 12/13/2020 Active traZODone HCl Active Azithromycin 250 MG 2 tablet on the s t day, then 1 tablet daily for 4 days Orally Once a day for 5 day(s) 12/13/2020 Active Fluticasone Propionate Active Omeprazole Active Benadryl Active ZyrTEC Allergy Activ e Azelastine HCl 0.1 % 1 puff in each nost ril Nasally Twice a day for 30 day(s) 09/16/2020 Active Diflucan 200 MG 1 tablet Orally once a day for 14 days Active Diflucan 200 MG 1 tablet Orally once daily for 14 days 11/29/2020 Active Ondansetron HCl 8 MG 1 tablet as needed Orally Every 8 hours for 14 days 11/29/2020 Active Social History Tobacco Use: Social History Observation Description Date Details (start date - stop date) Never Smoker NA - NA Smoking: Question Answer Notes Are you a: nonsmoker Alcohol screen: Question Answer Notes Did you have a drink containing alcohol in the p ast year: Yes Points: 0 Interpretation: Negative Problems Problem Type SNOMED Code ICD Code Onset Dates Problem Status W/U Status Risk Notes Problem 79209051 Nasal turbinate hypertrophy (J34.3) Active confirmed Problem Chronic sinusitis (20549516) Chronic sinusitis (J32.9) Active confirmed Problem Mast cell activation syndrome (76260264508377 100) Mast cell activation syndrome (D89.40) Active confirmed Plan Of Treatment No Information Insurance Providers Payer Name Payer Address Payer Phone Subscriber Number Group Number Insured Name Patient Relationship to Insured Coverage Start Date Coverage End Date BCBS [facility] [address] [place] [address] [id number] Lindsay Link Self - patient is the insured Medical (General) History Medical History History ICD Code Allergy Problems/Therapy Hearing loss asthma Sinusitis 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
--- OUTSIDE RECORDS SUMMARY | 2024-06-03 20:23 | XMS_ITS | Clinical Summary ---
Author Organization [facility] [address] Address [address] [place] [address] Care Team Providers Care Veterinary Assistant Name Role Phone Magaly Chapman NP Primary Care Provider [phone] Allergies Active Allergy Reactions Criticality Noted Date Comments Cephalosporins Hives Medium 04/02/2024 Erythromycin Hives Medium 04/02/2024 Penicillins Hives Medium 04/02/2024 Sulfa Hives Medium 04/02/2024 Medications No known medications Active Problems Problem Noted Date Diagnosed Date Gastrocnemius muscle tear, right, initial encoun ter 04/02/2024 Encounters Date Type Department Care Team Description 04/02/2024 9:00 AM CDT Office Visit [facility] at [address] [phone] Re Strange NP Calf muscle weakness (Primary Dx); Gastrocnemius muscle tear, right, initial encounter from Last 3 Months Social History Tobacco Use Types Packs/Day Years Used Date Smoking Tobacco: Never Tobacco Cessation:Counseling Given: Not Answered Personal Safety Answer Date Recorded Getting School Help Needed Not on file 08/19 Comments Unknown Sex and Gender Information Value Date Recorded Sex Assigned at Not on file Legal Sex Female 3:51 PM CHILD DAY CARE PROVIDER Gender Identity Not on file Sexual Orientation Not on file Obstetrics History Last Filed Vital Signs Vital Sign Reading Time Taken Comments Blood Pressure - - Pulse - - Temperature - - Respiratory Rate - - Oxygen Saturation - - Inhaled Oxygen Concentration - - Weight 70.3 kg (155 lb) 04/02/2024 8:53 AM CDT Height 165.1 cm (5' 5 ) 04/02/2024 8:53 AM CDT Body Mass Index 25.79 04/02/2024 8:53 AM CDT Plan of Treatment Health Maintenance Due Date Last Done Comments Cervical Cancer Screening 1974 Colon Cancer Screening-Colonoscopy 1974 Depression Screening 1974 Hepatitis C Screening 1974 DTaP/Tdap/Td Vaccine (1 - Tdap) 1985 Hepatitis B Screening 1992 Regular Well Visit/Exam 18-64 1992 Breast Cancer Screening-Mammogram 08/01/2020 08/01/2019, 08/01/2019 Covid-19 Vaccine ( season) 2024 07/28/2020, 07/06/2020 Influenza Vaccine (#1) 2024 , 03/19/2019, 06/13/2018, Additional history exists Zoster Vaccine (1 of 2) 2024 Pneumococcal vaccine <65 Aged Out No longer eligible based on patient's age to complete this topic Insurance [facility] FEDERAL [facility] [employer] Member Subscriber Plan / Payer (Ef fective 2021-Present) Name:Lindsay Link Relation to Subscriber:Self Name:Lindsay Link Payer ID:[id number] (NAIC) Group ID:[id number] Type:BC ALLIANCE Address: [facility] [address] [place] [id number] Care Teams Veterinary Assistant Relationship Specialty Start Date End Date Magaly Chapman NP [facility] [address] MARIE [address] [place] [id number] PCP - General Cardiovascular Disease 04/02/24
--- OUTSIDE RECORDS SUMMARY | 2024-06-03 20:23 | XMS_ITS | Referral Summary ---
Author Organization [facility] Address [address] [place] [address] Care Team Providers Care Writing Manager Name Role Phone Unavailable Primary Care Provider Unavailabl e Allergies Active Allergy Reactions Criticality Noted Date Comments Cephalosporins 05/24/2018 Doxycycline Hives High 04/15/2020 Erythromycin 04/05/2018 Penicillamine 06/02/2020 Other reaction(s): Unknown Penicillins 04/05/2018 Sulfa (Sulfonamide Antibiotics) High 04/05/2018 Sulfites 10/07/2018 Tetanus Vaccines And Toxoid 10/27/19 19 Medications triazolam (HALCION) 0.25 mg tablet Take [...] conservative modalities as needed. Patient may take gqvy-wof-dvakyds NSAIDs as needed. Patient may use calf [...] (12/30/2020): Added automatically from request for surgery [id number] Heartburn 07/05/2018 Throat pain 07/05/2018 Anxiety 05/28/2018 [...] or Most Recently Relevant to Health Maintenance Insurance [employer] PPO [employer] PPO
--- OUTSIDE RECORDS SUMMARY | 2024-06-03 20:23 | XMS_ITS | Encounter Summary ---
Author Organization [facility] [place] [address] [place] [address] Care Team Providers Care Registry Np Name Role Phone Unavailable Primary Care Provider Unavailabl e Encounter Details Date Type Department Care Team (Late st Contact Info) Description 07/07/2019 Converted [facility] Chart Documents [facility] [address], [address] [place] [address] Social History Tobacco Use Types [...]
--- OUTSIDE RECORDS SUMMARY | 2024-06-03 20:23 | XMS_ITS | Referral Summary ---
Author Organization [facility] [address] Address [address] [place] [address] Care Team Providers Care Supervisor Grips Name Role Phone Magaly Chapman NP Primary Care Provider [phone] Encounters Date Type Department Care Team Description 04/02/2024 9:00 AM CDT Office Visit [facility] Orthopedics and Sports Medicine at [address] [place] [address] Re Strange NP Calf muscle weakness (Primary Dx); Gastrocnemius muscle tear, right, initial encounter from Last 3 Months Allergies Active Allergy Reactions Criticality Noted Date Comments Cephalosporins Hives Medium 04/02/2024 Erythromycin Hives Medium 04/02/2024 Penicillins Hives Medium 04/02/2024 Sulfa Hives Medium 04/02/2024 Medications No known medications Active Problems Problem Noted Date Diagnosed Date Gastrocnemius muscle tear, right, initial encoun ter 04/02/2024 Social History Tobacco Use Types Packs/Day Years Used Date Smoking Tobacco: Never Tobacco Cessation:Counseling Given: Not Answered Personal Safety Answer Date Recorded Getting School Help Needed Not on file 08/19 Comments Unknown Sex and Gender Information Value Date Recorded Sex Assigned at Not on file Legal Sex Female 3:51 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
--- OUTSIDE RECORDS SUMMARY | 2024-06-03 20:23 | XMS_ITS | Encounter Summary ---
Author Organization [facility] Address [address] [place] [address] Care Team Providers Care Smoke Tester Name Role Phone Unavailable Primary Care Provider Unavailabl e Encounter Details Date Type Department Care Team (Late st Contact Info) Description 12/30/2020 1:45 PM MDT Office Visit [facility] [address] [place] [id number] Linda Schmitz DDS [address] [place] [address] Social History Tobacco Use Types Packs/Day Years [...] Sign Reading Time Taken Comments Blood Pressure 116/79 12/30/2020 1:45 PM MDT Pulse 83 12/30/2020 1:45 PM MDT Temperature - - Respiratory Rate - - Oxygen Saturation - - Inhaled Oxygen Concentration - - Weight - - Height - - Body Mass Index - - documented in this encounter Progress Notes * Linda Schmitz DDS - 12/30/2020 1:45 PM MDTSummary: Appeal Narrative for Exmore #3 To Whom It May Concern: Mrs. Lindsay Link presented to our office on March 23, 2020 for a continuing care appointment. Mrs. Link has severe dental anxiety and we have worked, for some time, to develop trust and build a relationship of confidence with Lindsay. Lindsay's concern was the beginning of cold sensitivity around tooth #3. Radiographs were taken and a clinical exam completed. Tooth #3 was found to have an existing (MOD) composite with an (OL) amalgam shinto. A large crack extended from the lingual base of the (OL)amalgam, extending subgingivally. The junction of the restorations was failing and Mrs. Link had developed severe recurrent decay around the amalgam shinto as well as recurrent decay beneath the (DO) portion of the composite. The crown on tooth #2 had been significantly overcontoured on the mesial to close the contact between the two teeth, leading to a poorly adapted proximal contact between #2 and 3, which also was a problem for Mrs. Link, as she said she often had food impacted in this area. A full coverage shinto was indicated to appropriately close contacts, restore decay, and restore tooth to full form and function and to keep it from cracking in half. Lindsay was excited to fix this problem. On 12/30/20, Mrs. Link took oral anxiolytics and was accompanied by her for her restorative appointment. The existing restorations on tooth #3 were removed, deep decay was found beneath amalgam, with close pulpal proximity, so much so that Mrs. Link was warned that tooth might require endodontic treatment in the future. A buildup was completed, tooth was prepared for a crown, andthe mesial of crown #2 was recontoured to appropriately close/adapte contacts. The final crown was fabricated and cemented same-day. Since the crown was completed, Mrs. Moses has reported complete resolution of symptoms. I appreciate your review of this letter. Please send me the name and the license number of the dentist that diagnosed this denial from x-rays alone, contradicted my findings, and damaged the doctor-patient relationship Mrs. Link and I have worked hard to create. Alternatively, approve and pay for this procedure that the patient needed and agreed to, or I will [facility] this [facility] External [facility]. Thank you, Dr. Linda Schmitz documented in this encounter Miscellaneous Notes * Dental Procedure Details - Linda Schmitz DDS - 12/30/2020 1:45 PM MDT Tooth #3 has large crack from occlusal onto lingual with severe recurrent decay with high likelihood of tooth cracking in half should full coverage shinto not be completed. Recommended full coverage shinto; anything less will likely result in catastrophic failure of the tooth requiring more extensive and costly treatment. Topical (Benzocaine 20%) placed. Septocaine (Articaine hydrochloride 4% w/ epi 1:100K) 3 carpule via buccal infiltration tooth #3 and PDL infiltration on buccal. Pt achieved profound anesthesia w/o complications. Isolation using dry angles, bite block - Mr. Mcleod tolerated. Removed all decay and residual amalgam. Placed composite buildup. Prepared tooth forcrown. Shade E.Max A1 HT used. Cerec crown scanned and milled with CAD/CAM Cerec- machine. Tried-in crown and confirmed contacts/occlusion. Cerec crown permanently seated. Cemented shinto using HF acid etch 15 sec; silanated shinto; etched tooth, microprime desensitizer, prime & vazquez elect; using Variolink Esthetic DC, permanently cemented. Post-seat x-ray taken to verify complete seating of shinto and complete cement removal. Cement removed accordingly. Exmore initial placement. Pt tolerated procedure well and left in good spirits. NV: 6M CCX/prophy/varnish documented in this encounter Plan of Treatment Not on file documented as of this encounter Procedures Procedure Name Priority Date/Time Associated Diagnosis Comments 3 CERECFIRED CROWNPOST Routine 12/30/2020 1:45 PM MDT NC X-RAY Routine 12/30/2020 1:45 PM MDT SALES TAX Routine 12/30/2020 1:45 PM MDT 3 CORE BUILDUP, INCLUDING ANY PINS WHEN REQUIRED Routine 12/30/2020 1:45 PM MDT documented in this encounter Visit Diagnoses Not on filedocumented in this encounter
--- OUTSIDE RECORDS SUMMARY | 2024-06-03 20:23 | XMS_ITS ---
Author Organization [facility] [place] [address] [place] [address] Care Team Providers Care Breeder Hen Service Technician Name Role Phone Unavailable Unavailable Unavailable Surgery Details Not on file Complications Check Surgery Details section. Procedure Estimated Blood Loss Check Surgery Details section. Procedure Findings Check Surgery Details section. Procedure Specimens Taken Check Surgery Details section.
--- OUTSIDE RECORDS SUMMARY | 2024-06-03 20:23 | XMS_ITS | Encounter Summary ---
Author Organization [facility] Address [address] [place] [address] Care Team Providers Care Classroom Assistant Name Role Phone Maagly Chapman NP Primary Care Provider [phone] Reason for Referral * Consultation (Routine) - Closed Specialty Diagnoses / Procedures Referred By Jah t Referred To Contact Physical Therapy Diagnoses Calf muscle weakness Re Strange NP [address] [place] [address] Phone: tel: fax: External Order Referral ID Status Reason Start Date Expiration Date V isits Requested Visits Authorized [id number] Closed Evaluate and Treat 04/02/2024 05/02/2025 24 24 Question Answer PTRFR PT Evaluate and Treat Reason for Visit Right calf strengthening Therapy options discussed with patient? 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 She was outside playing with her dog and felt a burn and a pop in her calf. The next day she couldn't walk. Injury occurred Sunday Encounter Details Date Type Department Care Team (Late st Contact Info) Description 04/02/2024 9:00 AM CDT Office Visit [facility] Medical Group Orthopedics and Sports Medicine at [address] [place] [id number] Re Strange NP [address] [place] [address] Calf muscle weakness (Primary Dx); Gastrocnemius muscle tear, right, initial encounter Social History Tobacco Use Types Packs/Day Years Used Date Smoking Tobacco: Never Tobacco Cessation:Counseling Given: Not Answered Personal Safety Answer Date Recorded Getting School Help Needed Not on file 08/19 Comments Unknown Sex and Gender Information Value Date Recorded Sex Assigned at Not on file 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 She was outside playing with her dog and felt a burn and a pop in her calf. The next day she couldn't walk. Injury occurred Sunday). HISTORY OF PRESENT ILLNESS Lindsay is a 49-year-old female, new patient to our practice. She has a medical history of Cher-Danlos syndrome. She was playing with her dog in the yd when she felt a sharp burn almost a pop into herright calf. She had swelling she had difficulty walking. She is on [place] so she thought maybe she had a blood clot. She did present to the ER where she had a negative ultrasound for blood clot. She states she has still continued to have pain she is limping. She has been taking methocarbamol and eclp-dhe-ymzwloj pain medication for pain relief ROS 12 POINT REVIEW OF SYSTEMS OTHERWISE NEGATIVE Objective PHYSICAL EXAM A&O x 3 Lungs: clear Abd: soft Heart: RRR Focused Ortho: Moderate swelling to the calf. Although it is soft, with no evidence of warmth or erythema. It is tender to the touch in the belly of the gastrocnemius. Negative Lozano's test. Achilles tendon is palpable and intact. She is able to demonstrate partial dorsiflexion and plantar flexion with mild pain. REVIEW OF X-RAYS/STUDIES/LABS Assessment/Plan Diagnoses and all orders for this visit: Calf muscle weakness (Primary) - Ambulatory referral order to Physical Therapy -; Future Gastrocnemius muscle tear, right, initial encounter PLAN I think at least a ruptured her gastrocnemius muscle. She is having quite a bit of pain when she isambulating so I am going to put her in a walking boot for 3 weeks. I told her she did not have to sleep in this. I told her she can come on occasionally to do gentle range of motion. She is going on several trips over the next couple of weeks to [place] in on a cruise. I told her she does not have to wear it while she is at the pool where she has lounging. Purely for her comfort. In 3 weeks I am going to send her to physical therapy to start working on some strengthening and range of motion. I will see her back in office in a month for re-evaluation, sooner if symptoms are worsening despite these interventions. Re Strange NP documented in this encounter Plan of Treatment Scheduled Referrals Name Type Priority Associated Diagnoses Order Schedule Ambulatory referral order to Physical Therapy - Outpatient Referral Routine Calf muscle weakness Expected: 04/23/2024 (Approximate), Expires: 04/02/2025 documented as of this encounter Visit Diagnoses Diagnosis Calf muscle weakness- Primary Gastrocnemius muscle tear, right, initial encounter documented in this encounter Care Teams Classroom Assistant Relationship Specialty Start Date End Date Magaly Chapman NP [facility] [address] [address] PCP - General Cardiovascular Disease 04/02/24 documented as of this encounter
--- OUTSIDE RECORDS SUMMARY | 2024-06-03 20:23 | XMS_ITS | Encounter Summary ---
Author Organization [facility] [place] Address [address] [place] [address] Care Team Providers Care Chicken Sexer Name Role Phone Unavailable Primary Care Provider Unavailabl e Encounter Details Date Type Department Care Team (Late st Contact Info) Description 07/07/2019 Converted 13x Documents [facility] [address] [address] [address], [place] [id number] Social History Tobacco Use Types Packs/Day Years [...]
--- OUTSIDE RECORDS SUMMARY | 2024-06-03 20:23 | XMS_ITS | Clinical Summary ---
Author Organization [facility] Address [address] [place] [address] Care Team Providers Care Diver Assistant Name Role Phone Unavailable Primary Care Provider [...] conservative modalities as needed. Patient may take dtun-nsn-aktzlsx NSAIDs as needed. Patient may use calf [...] (12/30/2020): Added automatically from request for surgery [id number] Heartburn 07/05/2018 Throat pain 07/05/2018 Anxiety 05/28/2018 [...] Mass Index - - Plan of Treatment Health Maintenance Due Date Last Done Comments Dental Prophylaxis 09/22/2020 03/23/2020, 05/24/2019 , 11/08/2018 Procedures Procedure Name Priority Date/Time Associated Diagnosis Comments PROPHYLAXIS - ADULT Routine 03/23/2020 1:00 AM MDT from Last 3 Months or Most Recently Relevant to Health Maintenance [facility]
--- OUTSIDE RECORDS SUMMARY | 2024-06-03 20:23 | XMS_ITS | Encounter Summary ---
Author Organization [facility] [place] Address [address] [place] [address] Care Team Providers Care Steamfitter Apprentice Name Role Phone Unavailable Primary Care Provider Unavailabl e Encounter Details Date Type Department Care Team (Latest Contact Info) Description 01/31/2021 Travel Social History Tobacco Use Types Packs/Day [...]
--- OUTSIDE RECORDS SUMMARY | 2024-06-03 20:23 | XMS_ITS | Encounter Summary ---
Author Organization [facility] Address [address] [place] [address] Phone Care Team Providers Care Strategic Marketing Specialist Name Role Phone No, Physician Primary Care Provider [phone] Encounter Details Date Type Department Care Team (Late st Contact Info) Description 01/10/2024 Orders Only [facility] [address] [place] [address] Unknown, Notinfile Social History Tobacco Use Types Packs/Day Years Used Date Smoking Tobacco: Never Assessed Personal Safety Answer Date Recorded Getting School Help Needed Not on file 08/19 Comments Unknown Sex and Gender Information Value Date Recorded Sex Assigned at Not on file 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 Gender Identity Not on file Sexual Orientation Not on file documented as of this encounter Plan of Treatment Not on file documented as of this encounter Procedures Procedure Name Priority Date/Time Associated Diagnosis Comments SURGICAL PATHOLOGY Routine 01/10/2024 9: 20 AM CDT documented in this encounter Results * Surgical pathology (01/10/2024 9:20 AM CDT) Skin, shave biopsy 01/10/2024 9:20 AM CDT 01/11/2024 6:46 AM CDT Narrative 01/14/2024 2:30 PM CDT EPIC results best viewed via link to PDF [facility] [address] [place] [address] Ave[address] ??[address], [place] [address] ? [email or web address] Note to Patients: ??This report may contain a detailed description of human tissue sent by a health care provider to the laboratory for pathologic evaluation. ??The content of this report is essential for diagnosis and may provide important critical findings. ??This information may be unfamiliar to patients to review without a medical professional present. ?? It is advised that the patient review this report in the presence of a health care provider who can answer questions and explain the details. FINAL REPORT Patient Information: PATIENT NAME: ??LINDSAY BLACK ? SEX: ??F ? : ??1975 (Age: 48) ? Specimen Information: COLLECTED: ??01/10/2024 ? RECEIVED: ??01/11/2024 ? REPORTED: ??01/14/2024 ? Submitting Physician Information: Dena Figueroa, [facility], [address] [place] [id number], ? DERMATOPATHOLOGY REPORT RESULTS ?? DIAGNOSIS: A. ??SKIN, RIGHT LATERAL MANDIBULAR CHEEK, SHAVE BIOPSY: ? DERMAL MELANOCYTIC NEVUS ?? B. ??SKIN, RIGHT LATERAL BUCCAL CHEEK, SHAVE BIOPSY: ? DERMAL MELANOCYTIC NEVUS exr/lac By this signature, I attest that the above diagnosis is based upon my personal examination of the slides(and/or other material indicated in the diagnosis). Alda Muir M.D. ?? Report Electronically Reviewed and Signed Out By ??Alda Muir M.D. 01/14/2024 14:30:42 CLINICAL INFORMATION A-B. NEOPLASM UNCERTAIN BEHAVIOR VS IRRITATED NEVUS SPECIMEN DATA MICROSCOPIC DESCRIPTION: A-B. There are uniform nests, cords and strands of small, monomorphous melanocytes within the dermis. (D22.9) GROSS DESCRIPTION: A. Received in a formalin-containing bottle are two superficial fragments of amezcua, variegated, and finely scaling skin measuring 0.6 by 0.4 by 0.3 cm and 0.6 by 0.3 by 0.1 cm. ??The surgical margins are inked blue. The larger piece is sectioned into 2 pieces. ??The specimen is submitted entirely in a single cassette. ??Due to shrinkage, measurements may be different than those at time of procedure. B. Received in a formalin-containing bottle is a superficial fragment of amezcua, variegated, and scaly skin measuring 1.0 by 0.6 by 0.2 cm. The surgical margin is inked blue. The specimen is sectioned into 2 pieces and submitted entirely in a single cassette. Due to shrinkage, measurements may be different than those at time of procedure. [facility] ICD-9 ZSD.808 ? Clerical Data A; 68259 B; 21761 The characteristics of special, immunohistochemical, and immunofluorescence stains and in-situ hybridization tests performed by the [facility] were deemed acceptable in ongoing senior manager quality assurance measures and in compliance with regulations drawn from the Clinical Laboratory Improvement Act mr1875 (CLIA '88). Control reactions for all stains performed were deemed adequate and appropriate by a pathologist prior to evaluation of patient tissue. Some diagnoses were rendered with the assistance of laboratory-developed tests utilizing analyte-specific reagents; the performance characteristic of these tests were determined by [facility] and are not cleared or approved by the [place] Food an Drug administration. Laboratory developed test may only be performed in a facility that is certified by the [facility] as a high-complexity laboratory under CLIA '88. These tests are used for clinical purposes and are not investigational. us Notinfile Unknown LAB PATHOLOGY ORDERABLES Final Result documented in this encounter Visit Diagnoses Not on filedocumented in this encounter Care Teams Strategic Marketing Specialist Relationship Specialty Start Date End Date No, Physician PCP - General 08/20/23 04/01/24 documented as of this encounter
--- OUTSIDE RECORDS SUMMARY | 2024-06-03 21:33 | XMS_ITS | Referral Summary ---
Author Organization [facility] Address [address] [place] [address] Care Team Providers Care Wind Tunnel Technician Name Role Phone Unavailable Primary Care Provider [...] conservative modalities as needed. Patient may take lnjr-fgf-bemouvi NSAIDs as needed. Patient may use calf [...] (12/30/2020): Added automatically from request for surgery [id number] Heartburn 07/05/2018 Throat pain 07/05/2018 Anxiety 05/28/2018 [...] Most Recently Relevant to Health Maintenance Insurance [employer] PPO [employer]
--- OUTSIDE RECORDS SUMMARY | 2024-06-03 21:33 | XMS_ITS | Clinical Summary ---
Author Organization [facility] Address [address] [place] [address] Care Team Providers Care Clean Up Person Name Role Phone Unavailable Primary Care Provider [...] conservative modalities as needed. Patient may take dstd-guh-xaymwax NSAIDs as needed. Patient may use calf [...] (12/30/2020): Added automatically from request for surgery [id number] Heartburn 07/05/2018 Throat pain 07/05/2018 Anxiety 05/28/2018 [...] Most Recently Relevant to Health Maintenance Insurance [employer] [facility]
--- OUTSIDE RECORDS SUMMARY | 2024-06-03 21:34 | XMS_ITS | Encounter Summary ---
Author Organization [facility] Address [address] [place] [address] Phone Care Team Providers Care Visual Merchandising Manager Name Role Phone No, Physician Primary Care Provider [phone] Encounter Details Date Type Department Care Team (Late st Contact Info) Description 01/10/2024 Orders Only [facility] [address] [place] [address] Unknown, Notinfile Social History Tobacco Use Types Packs/Day Years Used Date Smoking Tobacco: Never Assessed Personal Safety Answer Date Recorded Getting School Help Needed Not on file 08/19 Comments Unknown Sex and Gender Information Value Date Recorded Sex Assigned at Not on file 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 [email or web address] Note to Patients: ??This report may contain [...] ??01/14/2024 ? Submitting Physician Information: Dena Figueroa, [facility], [address] [place] [address] ??[phone], ? DERMATOPATHOLOGY REPORT RESULTS ?? DIAGNOSIS: A. [...] different than those at time of procedure. [facility] ICD-9 ZSD.808 ? Clerical Data A; 64191 B; 00931 The characteristics of special, immunohistochemical, and immunofluorescence stains and in-situ hybridization tests performed by the [facility] were deemed acceptable in ongoing quality analyst measures and in compliance with regulations drawn from the Clinical Laboratory Improvement Act fh6286 (CLIA '88). Control reactions for all stains performed were deemed adequate and appropriate by a pathologist prior to evaluation of patient tissue. Some diagnoses were rendered with the assistance of laboratory-developed tests utilizing analyte-specific reagents; the performance characteristic of these tests were determined by [facility] and are not cleared or approved by the [place] Food an Drug administration. Laboratory developed test may only be performed in a facility that is certified by the [facility] as a high-complexity laboratory under CLIA '88. These tests are used for clinical purposes and are not investigational. us Notinfile Unknown LAB PATHOLOGY ORDERABLES Final Result documented in this encounter Visit Diagnoses Not on filedocumented in this encounter Care Teams Visual Merchandising Manager Relationship Specialty Start Date End Date No, Physician PCP - General 08/20/23 04/01/24 documented as of this encounter
--- OUTSIDE RECORDS SUMMARY | 2024-06-03 21:34 | XMS_ITS | Encounter Summary ---
Author Organization [facility] Address [address] [place] [address] Care Team Providers Care Underground Conduit Installer Name Role Phone Unavailable Primary Care Provider [...]
--- OUTSIDE RECORDS SUMMARY | 2024-06-03 21:34 | XMS_ITS | Encounter Summary ---
Author Organization [facility] Address [address] [place] [address] Care Team Providers Care Business Intelligence Etl Developer Name Role Phone Unavailable Primary Care Provider Unavailabl e Encounter Details Date Type Department Care Team (Late st Contact Info) Description 01/31/2021 9:00 AM MDT Office Visit [facility] [address], [facility] [address] [place] [phone] Linda Schmitz DDS [address] [place] [address] Social History Tobacco Use Types Packs/Day Years [...]
--- OUTSIDE RECORDS SUMMARY | 2024-06-03 21:34 | XMS_ITS ---
Author Organization [facility] Address [address] [place] [address] Care Team Providers Care Instructor Warper Name Role Phone Unavailable Unavailable Unavailable Surgery Details Not on file Complications Check Surgery Details section. Procedure Estimated Blood Loss Check Surgery Details section. Procedure Findings Check Surgery Details section. Procedure Specimens Taken Check Surgery Details section.
--- OUTSIDE RECORDS SUMMARY | 2024-06-03 21:34 | XMS_ITS | Encounter Summary ---
Author Organization [facility] Address [address] [place] [address] Care Team Providers Care Chief Radiology Name Role Phone Unavailable Primary Care Provider Unavailabl e Encounter Details Date Type Department Care Team (Late st Contact Info) Description 07/07/2019 Converted 13x Documents [facility] [address], [address] [address] [place] [address] Social History Tobacco Use Types [...]
--- OUTSIDE RECORDS SUMMARY | 2024-06-03 21:34 | XMS_ITS | Encounter Summary ---
Author Organization [facility] Address [address] [place] [address] Care Team Providers Care Family Court Registrar Name Role Phone Unavailable Primary Care Provider Unavailabl e Encounter Details Date Type Department Care Team (Late st Contact Info) Description 12/29/2020 Orders Only [facility] [address], [address] [address] [place] [address] Linda Schmitz, DDS [address] [place] [address] Social History Tobacco Use Types Packs/Day Years [...]
--- OUTSIDE RECORDS SUMMARY | 2024-06-03 21:34 | XMS_ITS | Encounter Summary ---
Author Organization [facility] Address [address] [place] [address] Care Team Providers Care Oriental Rug Stretcher Name Role Phone Unavailable Primary Care Provider [...]
--- OUTSIDE RECORDS SUMMARY | 2024-06-03 21:34 | XMS_ITS | Encounter Summary ---
Author Organization [facility] Address [address] [place] [address] Care Team Providers Care Enterprise Account Executive Name Role Phone Unavailable Primary Care Provider Unavailabl e Encounter Details Date Type Department Care Team (Late st Contact Info) Description 07/07/2019 Converted 13x Documents [facility] [address], [place] [phone] Social History Tobacco Use Types Packs/Day Years [...]
--- OUTSIDE RECORDS SUMMARY | 2024-06-03 21:34 | XMS_ITS | Encounter Summary ---
Author Organization [facility] Address [address] [place] [address] Care Team Providers Care Pyrotechnician Name Role Phone Unavailable Primary Care Provider Unavailabl e Encounter Details Date Type Department Care Team (Late st Contact Info) Description 07/07/2019 Converted [facility] Chart Documents [facility] [address], [address] [address] [place] [address] Social History Tobacco Use Types [...]
--- OUTSIDE RECORDS SUMMARY | 2024-06-03 21:34 | XMS_ITS | Clinical Summary ---
Author Organization [facility] [address] Address [address] [place] [address] Care Team Providers Care Publicity Person Name Role Phone Magaly Chapman NP Primary Care Provider [phone] Allergies Active Allergy Reactions Criticality Noted Date Comments Cephalosporins Hives Medium 04/02/2024 Erythromycin Hives Medium 04/02/2024 Penicillins Hives Medium 04/02/2024 Sulfa Hives Medium 04/02/2024 Medications No known medications Active Problems Problem Noted Date Diagnosed Date Gastrocnemius muscle tear, right, initial encoun ter 04/02/2024 Encounters Date Type Department Care Team Description 04/02/2024 9:00 AM CDT Office Visit [facility] Orthopedics and Sports Medicine at [address] [phone] Re Strange NP Calf muscle weakness (Primary [...] on file 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 Gender Identity Not on file Sexual Orientation [...] patient's age to complete this topic Insurance [facility] FEDERAL [facility] FEDERAL Member Subscriber Plan / Payer (Ef fective 2021-Present) Name:Lindsay Link Relation to Subscriber:Self Name:Lindsay Link Payer ID:[id number] (NAIC) Group ID:[id number] Type:BC [employer] Address: [facility] [address] [place] [id number] Care Teams Publicity Person Relationship Specialty Start Date End Date Magaly Chapman NP [employer] [address] MARIE [address] [place] [address] PCP - General Cardiovascular Disease 04/02/24
--- OUTSIDE RECORDS SUMMARY | 2024-06-03 21:34 | XMS_ITS | Encounter Summary ---
Author Organization [facility] Address [address] [place] [address] Care Team Providers Care Project Management Engineer Name Role Phone Magaly Chapman NP Primary Care Provider [phone] Reason for Referral * Consultation (Routine) - Closed Specialty Diagnoses / Procedures Referred By Jah t Referred To Contact Physical Therapy Diagnoses Calf muscle weakness Re Strange NP [address] [place] [address] Phone: tel: fax: External Order Referral ID Status Reason Start Date Expiration Date V isits Requested Visits Authorized [id number] Closed Evaluate and Treat 04/02/2024 05/02/2025 24 24 Question Answer PTRFR PT Evaluate and Treat Reason for Visit Right calf strengthening Therapy options discussed with patient? Yes Location provided for therapy services is: Patient requested/Patient preferred Please select the performing region: External Order [171] # of visits: 24 Reason for Visit * Reason Comments Pain SHANK THREADER is here for her r ight calf. She was outside playing with her dog and felt a burn and a pop in her calf. The next day she couldn't walk. Injury occurred Sunday Encounter Details Date Type Department Care Team (Late st Contact Info) Description 04/02/2024 9:00 AM CDT Office Visit [facility] Orthopedics and Sports Medicine at [address] [place] [phone] Re Strange NP [address] [place] [address] Calf muscle weakness (Primary Dx); Gastrocnemius muscle tear, right, initial encounter Social History Tobacco Use Types Packs/Day Years Used Date Smoking Tobacco: Never Tobacco Cessation:Counseling Given: Not Answered Personal Safety Answer Date Recorded Getting School Help Needed Not on file 08/19 Comments Unknown Sex and Gender Information Value Date Recorded Sex Assigned at Not on file 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 She [...] limping. She has been taking methocarbamol and eger-nyr-lmipvre pain medication for pain relief ROS 12 [...] over the next couple of weeks to [place] in on a cruise. I told her [...] encounter documented in this encounter Care Teams Project Management Engineer Relationship Specialty Start Date End Date Magaly Chapman NP [facility] [address] [address] PCP - General Cardiovascular Disease 04/02/24 documented as of this encounter
--- OUTSIDE RECORDS SUMMARY | 2024-06-03 21:34 | XMS_ITS | Encounter Summary ---
Author Organization [facility] Address [address] [place] [address] Care Team Providers Care Chair Caner Name Role Phone Unavailable Primary Care Provider Unavailabl e Prior Encounters Date Type Department Care Team Description 01/31/2021 Travel 01/31/2021 9:00 AM MDT Office Visit [facility] [address], [facility] [address] [place] [phone] Linda Schmitz, DDS 12/30/2020 Travel 12/30/2020 1:45 PM MDT Office Visit [facility] [address], [address] [place] [address] Linda Schmitz, DDS 12/29/2020 Orders Only [facility] [address], [address] [place] [phone] Linda Schmitz, DDS 12/29/2020 Orders Only [facility] [address], [address] [place] [address] Linda Schmitz, DDS 07/07/2019 Converted 13x Documents [facility] [address], [place] [phone] <No scans attached> 07/07/2019 Converted CPS Chart Documents [facility] [address], [address] [place] [phone] <No scans attached> 07/07/2019 Converted 13x Documents [facility] [address], [place] [phone] <No scans attached> 07/07/2019 Converted 13x Documents [facility] [address], [address] [address] [place] [phone] <No scans attached> Last Filed Vital Signs [...] 21 ENDODONTIC THERAPY, PREMOLAR TOOTH (EXCLUDING FINAL GNOSTICIST) Routine 11/08/2018 1:00 AM MDT 14 MODL [...] MDT Visit Diagnoses Not on file Insurance [employer] PPO [employer] PPO
--- OUTSIDE RECORDS SUMMARY | 2024-06-03 21:34 | XMS_ITS | Referral Summary ---
Author Organization [facility] [address] Address [address] 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
--- OUTSIDE RECORDS SUMMARY | 2024-06-03 21:34 | XMS_ITS | CCD ---
Author Organization [facility] Address [address] [facility] [address] Care Team Providers Care Cello Teacher Name Role Phone Unavailable Primary Care Provider [...] conservative modalities as needed. Patient may take sfvx-scc-qmiykca NSAIDs as needed. Patient may use calf [...] (12/30/2020): Added automatically from request for surgery [id number] Heartburn 07/05/2018 Throat pain 07/05/2018 Anxiety 05/28/2018 [...]
--- OUTSIDE RECORDS SUMMARY | 2024-06-03 21:34 | XMS_ITS | Encounter Summary ---
Author Organization [facility] [place] [address] [place] [address] Care Team Providers Care Dispatcher Radio Name Role Phone Unavailable Primary Care Provider Unavailabl e Encounter Details Date Type Department Care Team (Late st Contact Info) Description 07/07/2019 Converted 13x Documents [facility] [address] [facility] [address], [place] [phone] Social History Tobacco Use Types Packs/Day Years [...]
--- OUTSIDE RECORDS SUMMARY | 2024-06-03 21:34 | XMS_ITS | Encounter Summary ---
Author Organization [facility] Address [address] [place] [address] Care Team Providers Care Cloth Mender Name Role Phone Unavailable Primary Care Provider Unavailabl e Encounter Details Date Type Department Care Team (Late st Contact Info) Description 12/29/2020 Orders Only [facility] [address], [address] [address] [place] [address] Linda Schmitz, DDS [address] [place] [address] Social History Tobacco Use Types Packs/Day Years [...]
--- OUTSIDE RECORDS SUMMARY | 2024-06-03 21:34 | XMS_ITS | Encounter Summary ---
Author Organization [facility] Address [address] [place] [address] Care Team Providers Care Ruby Engineer Name Role Phone Unavailable Primary Care Provider Unavailabl e Encounter Details Date Type Department Care Team (Late st Contact Info) Description 12/30/2020 1:45 PM MDT Office Visit [facility] [address], [address] [address] [place] [phone] Linda Schmitz DDS [address] [place] [address] Social History Tobacco Use Types Packs/Day Years [...] 12/30/2020 1:45 PM MDTSummary: Appeal Narrative for [place] #3 To Whom It May Concern: Mrs. [...] existing (MOD) composite with an (OL) amalgam jain. A large crack extended from the lingual base of the (OL)amalgam, extending subgingivally. The junction of the restorations was failing and Mrs. Link had developed severe recurrent decay around the amalgam jain as well as recurrent decay beneath the [...] impacted in this area. A full coverage jain was indicated to appropriately close contacts, restore [...] will turn this matter over to the [facility] Tool Pusher. Thank you, Dr. Linda Schmitz documented in this encounter Miscellaneous Notes * Dental Procedure Details - Linda Schmitz DDS - 12/30/2020 1:45 PM MDT Tooth #3 has large crack from occlusal onto lingual with severe recurrent decay with high likelihood of tooth cracking in half should full coverage jain not be completed. Recommended full coverage jain; anything less will likely result in catastrophic [...] confirmed contacts/occlusion. Cerec crown permanently seated. Cemented jain using HF acid etch 15 sec; silanated jain; etched tooth, microprime desensitizer, prime & vazquez elect; using Variolink Esthetic DC, permanently cemented. Post-seat x-ray taken to verify complete seating of jain and complete cement removal. Cement removed accordingly. [place] initial placement. Pt tolerated procedure well and [...]
== END 2024-05-31 09:52 | disposition home or self-care (01) ==
PROVIDERS: Emergency Provider Emergency Medicine; PCP Clinical Nurse Specialist
DX: J06.9 Acute upper respiratory infection, unspecified (principal); B97.4 Respiratory syncytial virus as the cause of diseases classified elsewhere; I73.00 Raynaud's syndrome without gangrene; Q79.60 Ehlers-Danlos syndrome, unspecified; Z20.822 Contact with and (suspected) exposure to COVID-19
CPT/HCPCS: 36415; 71046; 80053; 83735; 84145; 85025; 87637; 87651; 96361; 96374; 99284; A9270; J1885; J7030

== ENCOUNTER 2024-06-02 08:25 | Outpatient (CLI) | payer BC, SELFPAY ==
--- NOTE | ~2024-06-02 | MMUS_ITS ---
EXAMINATION: MM diagnostic cristi BI w pedro, US breast BI complete HISTORY: Dense breasts. Following prior examination it was recommended for diagnostic bilateral mammo gram and ultrasound on subsequent study. TECHNIQUE: Additional 3-D tomosynthesis images of the breasts were performed and synthetic 2-D images were generated. CAD analysis was submitted and interpreted. High resolution complete bilateral breas t ultrasound was performed. COMPARISON: Comparison to multiple prior studies sequentially, with oldest reviewed study dated 06/2021. BREAST PARENCHYMAL COMPOSITION: Dense: The breasts are extremely dense, which lowers the sensitivity of mammography. FINDINGS: MAMMOGRAPHIC FINDINGS: The breasts are stable. Bilateral breast asymmetries are unchanged from prior examination. No new masses, calcifications or architectural distortion. ULTRASOUND: Complete US of all 4 quadrants of the breast/s and retroareolar region was reviewed. Diffuse heteroge neous echotexture without suspicious masses to suggest malignancy. There are small cyst in the left b reast, largest measuring 9 mm. IMPRESSION: 1. No evidence for malignancy in either breast. 2. Routine yearly screening mammogram and regular clinical breast examination are recommended. BI-RADS Category 2: Benign finding(s). Reviewed, dictated and finalized at location B. ISHING MACHINE OPERATOR IMPRESSION: 1. No evidence for malignancy in either breast. 2. Routine yearly screening mammogram and regular clinical breast examination a re recommended. BI-RADS Category 2: Benign finding(s).
== END 2024-06-02 08:26 | disposition home or self-care (01) ==
LOC: MICIMG 08:26
PROVIDERS: PCP Clinical Nurse Specialist; Visit Provider Clinical Nurse Specialist
DX: R92.8 Other abnormal and inconclusive findings on diagnostic imaging of breast (principal)
CPT/HCPCS: 76641; 77062; 77066; G0279

== ENCOUNTER 2024-08-13 09:45 | Outpatient (CLI) | payer BC, SELFPAY ==
--- NOTE | ~2024-08-13 | CT_ITS ---
EXAMINATION: CTA chest DATE: 08/13/2024 10:29 INDICATION: Cher-Danlos syndrome, unspecified. TECHNIQUE: Computed tomographic angiography (CTA) of the chest was performed with 100 mL Omnipaque-35 0 intravenous contrast. Automated exposure control and iterative reconstruction technique were employ ed. The dose-length product was 219.58 mGy-cm. Maximum intensity projection 3D-reconstructions of the aorta and other arteries were constructed by the technologist on a separate workstation. COMPARISON: None. FINDINGS: The lungs demonstrate minimal atelectasis. No pleural effusion. There is a 17 mm nodule in left thyroid lobe. The heart size is normal. No pericardial effusion. Thoracic aorta is normal in catarino iber. No aneurysm or dissection. There is moderate thoracic spondylosis. IMPRESSION: 1. Normal aorta. 2. 17 mm pulmonary nodule. Consider thyroid ultrasound for risk stratification. 3. After the scan, the patient experienced a contrast reaction characterized by perioral tingling and tongue tingling. She denied shortness of breath or difficulty swallowing. I gave the patient 50 mg B enadryl IV. The patient agreed to stay in the department for one hour for observation. Reviewed, dictated and finalized at location A. ER IMPRESSION: 1. Normal aorta. 2. 17 mm pulmonary nodule. Consider thyroid ultrasound for risk stratification. 3. After the scan, the patient experienced a contrast reaction characterized by perioral tingling and tongue tingling. She denied shortness of breath or diffi culty swallowing. I gave the patient 50 mg Benadryl IV. The patient agreed to s roshni in the department for one hour for observation.
--- OUTSIDE RECORDS SUMMARY | 2024-08-13 10:53 | XMS_ITS | Referral Summary ---
Author Organization [address] [facility] Address [address] [place] [address] Care Team Providers Care High School Admissions Representative Name Role Phone Magaly Chapman NP Primary Care Provider [phone] Encounters Date Type Department Care Team Description 07/25/2024 8:10 AM BOOK CRITIC - 07/25/2024 11:59 PM BOOK CRITIC Hospital Encounter [facility] Orthopedics and Sports Medicine at [address] [phone] Discharge Disposition: Discharge to home or self care 07/25/2024 8:10 AM BOOK CRITIC - 07/25/2024 11:59 PM BOOK CRITIC Hospital Encounter [facility] Orthopedics and Sports Medicine at [address] [phone] Discharge Disposition: Discharge to home or self care 07/25/2024 8:30 AM BOOK CRITIC Office Visit [facility] Orthopedics and Sports Medicine at [address] [phone] Re Strange NP Cervicalgia (Primary Dx); Left knee pain, unspecified chronicity from Last 3 Months Allergies Active Allergy Reactions Criticality Noted Date Comments Cephalosporins Hives Medium 04/02/2024 Erythromycin Hives Medium 04/02/2024 Penicillins Hives Medium 04/02/2024 Sulfa Hives Medium 04/02/2024 Medications methylPREDNISol one (Medrol, John,) 4 mg Dosepack Take 1 tablet (4 mg total) by mouth as directed Take as directed on package 1 packet 07/25/2024 Active cyclobenzaprine (FLEXERIL) 10 mg tablet Take 1 tablet (10 mg total) by mouth 3 (three) times a day as needed for muscle spasms 90 tablet 2 07/25/2024 Active Active Problems Problem Noted Date Diagnosed Date Gastrocnemius muscle tear, right, initial encoun ter 04/02/2024 Social History Tobacco Use Types Packs/Day Years Used Date Smoking Tobacco: Never Tobacco Cessation:Counseling Given: Not Answered Comments Unknown Sex and Gender Information Value Date Recorded Sex Assigned at Not on file Legal Sex Female 3:51 PM BOOK CRITIC Gender Identity Not on file Sexual Orientation [...] CDT Plan of Treatment Not on file Procedures Procedure Name Priority Date/Time Associated Diagnosis Comments XR KNEE LEFT 4 OR MORE VIEWS Schedule Routine, Read Routine (OP Routine) 07/25/2024 8:19 AM BOOK CRITIC Left knee pain, unspecified chronicity XR SPINE CERVICAL 2 OR 3 VIEWS Schedule Routine, Read Routine (OP Routine) 07/25/2024 8:19 AM BOOK CRITIC Cervicalgia from Last 3 Months Results * XR Knee Left 4 or More Views (07/25/2024 8:19 AM BOOK CRITIC) Anatomical Region Laterality Modality Lower Extremities, Knee Left Digital Radiography Narrative 07/25/2024 8:24 AM BOOK CRITIC No acute fractures, mild degenerative changes generally within the knee Re Strange NP IMG XR PROCEDURES Edited Res ult - Final * XR Spine Cervical 2 or 3 Views (07/25/2024 8:19 AM BOOK CRITIC) Anatomical Region Laterality Modality Spine N/A Digital Radiogra phy Narrative 07/25/2024 8:25 AM BOOK CRITIC No acute fractures, C-spine within a normal alignment. There is degenerative disc disease most significant between C6 and C7 as evidenced by joint space narrowing anterior osteophyte formation. Re Strange NP IMG XR PROCEDURES Final Resu lt from Last 3 Months Insurance [facility] FEDERAL [facility] FED[employer]AL Care Teams High School Admissions Representative Relationship Specialty Start Date End Date Magaly Chapman NP [address] [place] [address] DR [address] [place] [address] PCP - General Cardiovascular Disease 04/02/24
--- OUTSIDE RECORDS SUMMARY | 2024-08-13 10:53 | XMS_ITS | Encounter Summary ---
Author Organization [facility] Address [address] [place] [address] Care Team Providers Care Associate Artistic Director Name Role Phone Unavailable Primary Care Provider Unavailabl e Prior Encounters Date Type Department Care Team Description 01/31/2021 Travel 01/31/2021 9:00 AM MDT Office Visit [facility] [address], [facility] [address] [place] [phone] Linda Schmitz, DDS 12/30/2020 Travel 12/30/2020 1:45 PM MDT Office Visit [facility] [address], [address] [place] [phone] Linda Schmitz, DDS 12/29/2020 Orders Only [facility] [address], [address] [place] [phone] Linda Schmitz, DDS 12/29/2020 Orders Only [facility] [address], [address] [place] [address] Linda Schmitz, DDS 07/07/2019 Converted 13x Documents [facility] [address], [place] [phone] <No scans attached> 07/07/2019 Converted CPS Chart Documents [facility] [address], [address] [place] [phone] <No scans attached> 07/07/2019 Converted 13x Documents [facility] [address], [place] [phone] <No scans attached> 07/07/2019 Converted 13x Documents [facility] [address], [address] [address] [place] [address] <No scans attached> Last Filed Vital Signs [...] 21 ENDODONTIC THERAPY, PREMOLAR TOOTH (EXCLUDING FINAL SABIANIST) Routine 11/08/2018 1:00 AM MDT 14 MODL [...] MDT Visit Diagnoses Not on file Insurance [employer] PPO [employer] P[employer]
--- OUTSIDE RECORDS SUMMARY | 2024-08-13 10:53 | XMS_ITS | Patient Health Record ---
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
--- OUTSIDE RECORDS SUMMARY | 2024-08-13 10:53 | XMS_ITS | Clinical Summary ---
Author Organization [place] [address] [place] [facility] Address [address] [place] [id number] Care Team Providers Care Painting Technician Name Role Phone Magaly Chapman NP Primary Care Provider [phone] Allergies Active Allergy Reactions Criticality Noted Date [...] Date Type Department Care Team Description 07/25/2024 8:30 AM PRODUCT STEWARD Office Visit [facility] at [address] [phone] Re Strange NP Cervicalgia (Primary Dx); Left knee pain, unspecified chronicity 07/25/2024 8:10 AM PRODUCT STEWARD - 07/25/2024 11:59 PM PRODUCT STEWARD Hospital Encounter [facility] at [address] [phone] Discharge Disposition: Discharge to home or self care 07/25/2024 8:10 AM PRODUCT STEWARD - 07/25/2024 11:59 PM PRODUCT STEWARD Hospital Encounter [facility] at [address] [place] [address] Discharge Disposition: Discharge to home or self care from Last 3 Months Social History Tobacco Use Types Packs/Day Years Used Date Smoking Tobacco: Never Tobacco Cessation:Counseling Given: Not Answered Comments Unknown Sex and Gender Information Value Date Recorded Sex Assigned at Not on file Legal Sex Female 3:51 PM PRODUCT STEWARD Gender Identity Not on file Sexual Orientation [...] on patient's age to complete this topic Procedures Procedure Name Priority Date/Time Associated Diagnosis Comments XR KNEE LEFT 4 OR MORE VIEWS Schedule Routine, Read Routine (OP Routine) 07/25/2024 8:19 AM PRODUCT STEWARD Left knee pain, unspecified chronicity XR SPINE CERVICAL 2 OR 3 VIEWS Schedule Routine, Read Routine (OP Routine) 07/25/2024 8:19 AM PRODUCT STEWARD Cervicalgia from Last 3 Months Results * XR Knee Left 4 or More Views (07/25/2024 8:19 AM PRODUCT STEWARD) Anatomical Region Laterality Modality Lower Extremities, Knee Left Digital Radiography Narrative 07/25/2024 8:24 AM PRODUCT STEWARD No acute fractures, mild degenerative changes generally within the knee Re Strange NP IMG XR PROCEDURES Edited Res ult - Final * XR Spine Cervical 2 or 3 Views (07/25/2024 8:19 AM PRODUCT STEWARD) Anatomical Region Laterality Modality Spine N/A Digital Radiogra phy Narrative 07/25/2024 8:25 AM PRODUCT STEWARD No acute fractures, C-spine within a normal alignment. There is degenerative disc disease most significant between C6 and C7 as evidenced by joint space narrowing anterior osteophyte formation. us Re Strange NP IMG XR PROCEDURES Final Resu lt from Last 3 Months Insurance [facility] [employer] [facility] [employer] Care Teams Painting Technician Relationship Specialty Start Date End Date Magaly Chapman NP [facility] [address] [place] [id number] PCP - General Cardiovascular Disease 04/02/24
--- OUTSIDE RECORDS SUMMARY | 2024-08-13 10:53 | XMS_ITS | Clinical Summary ---
Author Organization [facility] Address [address] [place] [address] Care Team Providers Care Hotel Security Officer Name Role Phone Unavailable Primary Care Provider [...] to presenting reason, and examination findings from today s exam. If there is any change [...] conservative modalities as needed. Patient may take hnuk-pak-toajqez NSAIDs as needed. Patient may use calf compression sleeve if needed. Will await ultrasound results to determine additional treatment as applicable. Discussed available diagnostic imaging associated with diagnosis including discussion on diagnosis, prognosis, available treatment options and expected outcomes. Note: the listed diagnosis is based on review of available diagnostic modalities, gathering health history pertinent to presenting reason, and examination findings from today s exam. If there is any change [...] (12/30/2020): Added automatically from request for surgery [id number] Heartburn 07/05/2018 Throat pain 07/05/2018 Anxiety 05/28/2018 [...] Last Done Comments Dental Prophylaxis 09/22/2020 03/23/2020, 1 07/25/2018, 11/08/2018 Meningococcal B Vaccine Aged Out No l onger eligible based on patient's age to complete this topic Procedures Procedure Name Priority Date/Time Associated Diagnosis Comments PROPHYLAXIS - ADULT Routine 03/23/2020 1:00 AM MDT from Last 3 Months or Most Recently Relevant to Health Maintenance Insurance [employer] [facility]
[2024-08-13 11:13] VITALS: BP 124/89; PULSE 78; RESP 16; O2SAT 100
== END 2024-08-13 09:46 | disposition home or self-care (01) ==
PROVIDERS: PCP Clinical Nurse Specialist; Visit Provider Clinical Nurse Specialist
DX: Q79.60 Ehlers-Danlos syndrome, unspecified (principal); R91.1 Solitary pulmonary nodule
CPT/HCPCS: 71275; Q9967

== ENCOUNTER 2024-08-14 07:34 | Outpatient (CLI) | payer BC, SELFPAY | END 2024-08-14 07:35 | disposition home or self-care (01) | LOC: MICIMG 07:34 | PROVIDERS: PCP Clinical Nurse Specialist; Visit Provider Clinical Nurse Specialist | DX: E04.2 Nontoxic multinodular goiter (principal) | CPT/HCPCS: 76536 ==